=== PATIENT | male | born 1955 | race Caucasian/White ===

== ENCOUNTER 2018-08-10 11:22 | Observation (INO) ==
[2018-08-10] MEDS ORDERED: 0.9 % Sodium Chloride 1,000 ML IVC SCH (12:00)
[2018-08-10 12:23] LABS: Basophils % 0.2 %; Eosinophils % 0.2 %; Hematocrit 33.1 % (37.5-50.1); Immature Granulocytes % 1.6 % (0-4); Lymphocytes # 0.6 K/mcL (0.6-4.6); Lymphocytes % 3.5 %; Mean Corpuscular Volume 75.7 fL (83.0-100.0); Monocytes # 0.9 K/mcL (0.0-1.3); Monocytes % 5.5 %; Neutrophils # 14.8 K/mcL (1.6-8.9); Platelet Count 469 K/mcL (140-400); Red Blood Count 4.37 M/mcL (4.19-5.50); Red Cell Distribution Width 20.3 % (11.5-14.5)
[2018-08-10 12:25] LABS: Hemoglobin 9.6 g/dL (12.9-16.9)
[2018-08-10 12:31] LABS: INR 1.1; Prothrombin Time 12.7 Seconds (9.4-12.1)
[2018-08-10 12:44] LABS: Troponin I < 0.03 ng/mL (< 0.04)
[2018-08-10 12:53] LABS: Alanine Aminotransferase 56 Units/L (7-52); Albumin 3.8 g/dL (3.5-5.7); Albumin/Globulin Ratio 1.1 (1.1-2.2); Alkaline Phosphatase 81 Units/L (34-104); Aspartate Amino Transferase 15 Units/L (13-39); BUN/Creatinine Ratio 31 (6-26); Bilirubin,Total 0.3 mg/dL (0.3-1.0); Blood Urea Nitrogen 27 mg/dL (8-23); Calcium 9.5 mg/dL (8.6-10.3); Carbon Dioxide 26 mEq/L (23-29); Chloride 100 mEq/L (98-107); Globulin 3.5 g/dL (2.4-3.5); Glucose 322 mg/dL (70-105); Osmolality,Calculated 298 (280-300); Potassium 4.4 mEq/L (3.5-5.1); Sodium 135 mEq/L (136-145); Total Protein 7.3 g/dL (6.4-8.9); eGFR For Non-African Americans > 60 (> 60)
--- NOTE | 2018-08-10 12:57 | Emergency Department Note ---
Disposition Clinical Impression: Headache, Pneumonia, Neck pain, Orthostatic hypotension, Dizziness Disposition: Admitted As Inpatient Condition: Fair Forms: ED Satisfaction Letter Time of Disposition: 15:26 General Adult HPI - General Chief complaint: ED Headache Stated complaint: LOW BP/DIzzy Time Seen by Provider: 08/10/18 11:39 Source: patient, family Mode of arrival: ambulatory Limitations: no limitations Nursing Notes Reviewed: Yes Vital Signs Reviewed: Yes - History of Present Illness HPI Narrative: Patient presents emergency room by personal vehicle. Patient presented to request of the primary care provider for evaluation of significant lighthe adedness dizziness and shortness of breath. Patient was seen and evaluated in the hospital setting last week and was discharged home with anemia of unknown etiology. Patient has not had any sedating changes and is been describing dizziness and lightheadedness since leaving the hospital. Currently is denying chest pain, fevers, chills, nausea vomiting or diarrhea. Denies any vision changes. He does have a headache and intermittent lightheadedness noted. Onset (ago): day(s) Location: head Radiation: non-radiation Pain Scale: 8 Quality: aching Consistency: constant Improves with: nothing Worsens with: nothing Associated symptoms: Reports: denies other symptoms Treatments Prior to Arrival: none - Related Data Home Medications Medication Instructions Recorded Confirmed Amlodipine Besylate 10 mg PO DAILY 08/01/18 08/01/18 Aspirin [Adult Aspirin] 81 mg PO DAILY 08/01/18 08/01/18 Atenolol 100 mg PO DAILY 08/01/18 08/01/18 Atorvastatin [Lipitor] 40 mg PO HS 08/01/18 08/01/18 Buspirone HCl [Buspar] 10 mg PO DAILY 08/01/18 08/01/18 Clopidogrel [Plavix] 75 mg PO DAILY 08/01/18 08/01/18 Cyclobenzaprine [Flexeril] 10 mg PO TID PRN 08/01/18 08/01/18 Magnesium 125 mg PO DAILY 08/01/18 08/01/18 Sertraline [Zoloft] 200 mg PO DAILY 08/01/18 08/01/18 hydroCHLOROthiazide 12.5 mg PO DAILY 08/01/18 08/01/18 [Hydrochlorothiazide] metFORMIN [Glucophage] 500 mg PO BID 08/01/18 08/01/18 traZODone [TraZODone] 50 mg PO HS PRN 08/01/18 08/01/18 Sildenafil Citrate [Viagra] 50 - 100 mg PO DAILY PRN 08/02/18 08/02/18 Previous Rx's Medication Instructions Recorded Ferrous Sulfate 325 mg PO DAILY 10 Days #10 tablet 08/07/18 Omeprazole [PriLOSEC] 40 mg PO DAILY 10 Days #10 cap 08/07/18 amLODIPine [Norvasc] 10 mg PO DAILY 5 Days #10 tablet 08/07/18 predniSONE [PredniSONE] 10 mg PO TAPER 14 Days #56 tablet 08/07/18 Allergies Allergy/AdvReac Type Severity Reaction Status Date / Time Iodinated Contrast- Oral and Allergy Angioedema Verified 08/10/18 11:32 IV Dye lisinopril Allergy Angioedema Verified 08/10/18 11:32 Penicillins [PCN] Allergy Hives Verified 08/10/18 11:32 shellfish derived AdvReac Intermediate See Verified 08/10/18 11:32 Comments cefuroxime [From Ceftin] AdvReac Diarrhea Verified 08/10/18 11:32 All systems ED: reviewed and negative except as stated. Review of Systems: As Per HPI Constitutional: Denies: fever, chills, weakness Eyes: Denies: eye pain, eye discharge ENT ED: Reports: throat pain Cardiovascular: Denies: chest pain, palpitations, dyspnea on exertion Respiratory: Denies: cough, dyspnea, wheezes Gastrointestinal: Denies: abdominal pain, nausea, vomiting, diarrhea Genitourinary: Denies: urgency, dysuria, frequency Musculoskeletal: Reports: arthralgia. Denies: back pain, neck pain Integumentary: Denies: rash, abrasion Neurological: Reports: headache. Denies: weakness Endocrine: Reports: fatigue Past Medical History - Past Medical History Attestation: Yes The following information was validated with the patient. Source: patient Medical history: Reports: arthritis, asthma, CVA, diabetes, hypertension Psychiatric history: Reports: no psych history - Social History Smoking Status: Never smoker Smokeless Tobacco Status: No Alcohol use: Reports: rarely Drug use: Reports: none Physical Exam - General Limitations: no limitations General appearance: alert, in no apparent distress - Head Head exam: atraumatic, normocephalic, normal inspection - Eye Eye exam: Present: normal appearance, PERRL, EOMI - ENT ENT exam: normal exam, normal oropharynx, mucous membranes moist - Neck Neck exam: Present: normal inspection, full ROM, trachea midline. Absent: meningismus, lymphadenopathy - Chest Chest inspection: Present: normal inspection, symmetric chest wall rise. Absent: tenderness - Respiratory Respiratory exam: Present: normal lung sounds bilaterally. Absent: respiratory distress, accessory muscle use - Cardiovascular Cardiovascular exam: Present: regular rate, normal rhythm, normal heart sounds - Abdominal Exam Abdominal exam: Present: soft, Non-Tender, normal bowel sounds. Absent: tenderness, distention, guarding, rebound, rigidity, Vo's sign, Rovsing's sign, tenderness at McBurney's Point - Extremities Exam Extremities exam: Present: normal inspection, full ROM, normal capillary refill. Absent: tenderness - Back Exam Back exam: Present: normal inspection, full ROM. Absent: tenderness - Neurological Exam Neurological exam: Present: alert, oriented X3, CN II-XII intact, normal gait - Skin Skin exam: Present: warm, dry, intact, normal color Course Course Narrative: Patient seen and examined the time of arrival. See history of present illness. Patient presents here today with complaint of generalized malaise bodyaches pain in his neck and dizziness. Patient was seen and evaluated in the hospital setting less than a week ago for similar presenting issues. He was found to have hemoglobin of 6.0. He had detailed workup completed that time looking for bleeding sources. He was discharged home with persistent symptoms. Since going home he has not had any real change in the symptoms. He is complaining of hoarse voice and sore throat. This was secondary to an intubation was completed here in the hospital from a medication reaction. Patient had a severe medication reaction to contrast dye and lisinopril. At this point is denying fevers or chills. He does have a headache. Denies any vision changes nausea vomiting or diarrhea. Denies any chest pain or shortness of breath at this time. He is describing orthopnea as well as exertional lightheadedness. He also has documented orthostatic vital signs from his primary care provider's office. They were concerned and sent him into the emergency room for evaluation. Heart rate initially was in the 50s. This could be contributing to his presentation. He is afebrile pulse ox is normal. Physical exam shows a well-appearing male that does appear to be in some moderate distress. Head is atraumatic. Pupils are equal round reactive. Extraocular muscles are intact. Oropharynx is patent. He does have pain with opening and closing of the mouth. His tenderness at the posterior aspect of the bilateral mandibular angle. He has tenderness in the musculature to the anterior neck. He has no midline tenderness to the cervical spine. He has no pain with flexion of the neck for outside of the discomfort he feels around his jaw mouth. Based on the physical exam he has no meningeal symptoms. He does not have reproducible lymphadenopathy. There is no crepitus or discomfort in the neck wall or chest wall. Lungs are clear to auscultation heart is regular. Abdomen is soft nontender nondistended with no guarding no rigidity and no peritoneal symptoms. No signs of pitting edema or swelling in the lower extremities. Patient has no signs of focal neurologic deficit or symptoms at this point. Because of the recent manipulation as well as a descriptive symptoms here today patient will be provided with fluids, offers headache and has CBC chemistry troponin and BNP EKG chest x-ray and CT imaging of his head completed at this time. We will continue to monitor during this treatment course. No visible focal infectious sources are noted at this point. Chest x-ray will be resulted as well. Disposition pending full workup and treatment course. - Reevaluation(s) Reevaluation #1: Patient has negative CT scan of the head. Chest x-ray shows stable cardiomegaly with slight pulmonary congestion. The patient could have symptoms of congestive heart failure. This would be a new diagnosis for him. Patient also is having persistent pain in the neck. IV fluids pain medication will be provided. CT by noncontrasted evaluation the neck and chest will be resulted at this point looking for free air mass effect or any issue secondary to what appears to be a traumatic intubation. Patient is comfortable this plan. Disposition pending treatment course. EKGs were reviewed with the district manager Dr. Manzano. 2 s ubsequent EKGs were collected in that do not meet STEMI criteria based on my review. The troponin is negative and patient has had no chest pain. He does not warrant an emergent intervention or evaluation at this time but will continue to monitor closely and determine disposition. Time: 13:32 Reevaluation #2: Patient is found to have bilateral pneumonia. This is most likely ventilator associated secondary to the emergency intubation in the hospital stay. Went back to discuss the findings with the family. They said that when they were discharged. Told that he could get pneumonia but he was not going to be treated for it at the time of discharge home. Is also had the neck pain since leaving the hospital. The patient does have a previous history of cervical surgery on his spine. He is describing the pain as sharp and acute in his neck when he goes to move. The CT of the soft tissue of the neck does not show any gross abnormality at this time. Pain medications will be given. 2 more liters of fluid ordered and lactic acid has been added on at this time considering that we do have a infectious source to account for the elevated white blood cell count neutrophilia. Patient does not immediately meet sepsis criteria at this point. We will continue to monitor until this is established. Hospitalist has been contacted for medical intervention and admission. Family was informed and they are comfortable with the plan. Patient has been provided Levaquin, aztreonam, vancomycin for ventilator associated pneumonia with a penicillin allergy. The hospitalist Dr. Ramsay reviewed the case and no other recommendations or concerns. Lactic acid is still pending at this point. Patient has started been appropriately resuscitated with his pain medication fluids nausea medication and antibiotics. Patient will be observed in emergency room until admission process is completed Time: 15:18 Vital Signs Temperature 97.4 F L 08/10/18 11:31 Pulse Rate 54 08/10/18 11:31 Respiratory Rate 18 08/10/18 11:31 Blood Pressure 118/68 08/10/18 11:31 O2 Sat by Pulse Oximetry 98 08/10/18 11:31 Temperature 97.4 F L 08/10/18 12:07 Pulse Rate 55 08/10/18 13:29 Respiratory Rate 16 08/10/18 13:29 Blood Pressure 144/77 08/10/18 13:29 O2 Sat by Pulse Oximetry 97 08/10/18 13:29 Oxygen Delivery Oxygen Delivery Room Air Medical Decision Making - MDM Narrative Medical decision making narrative: Dizziness, neck pain, headache, generalized malaise - Medical Records Medical records reviewed: Yes I reviewed the patient's medical records. - Lab Data Lab results reviewed: Yes I reviewed the patient's lab results. Result diagrams: 08/10/18 11:48 08/10/18 12:07 Lab Results 08/10/18 08/10/18 08/10/18 Range/Units 11:48 11:48 11:48 WBC 16.7 H (4.3-11.1) K/mcL RBC 4.37 (4.19-5.50) M/mcL Hgb 9.6 L D (12.9-16.9) g/dL Hct 33.1 L (37.5-50.1) % MCV 75.7 L (83.0-100.0) fL MCH 22.0 L (28.0-33.3) pg MCHC 29.0 L (31.6-35.5) g/dL RDW 20.3 H (11.5-14.5) % Plt Count 469 H (140-400) K/mcL MPV 10.0 (9.4-12.4) fL Immature Gran % 1.6 (0-4) % Seg Neutrophils % 89.0 % Lymphocytes % 3.5 % Monocytes % 5.5 % Eosinophils % 0.2 % Basophils % 0.2 % Neutrophils # 14.8 H (1.6-8.9) K/mcL Lymphocytes # 0.6 (0.6-4.6) K/mcL Monocytes # 0.9 (0.0-1.3) K/mcL Eosinophils # 0.0 (0.0-0.6) K/mcL Basophils # 0.0 (0.0-0.2) K/mcL PT 12.7 H (9.4-12.1) Seconds INR 1.1 Sodium (136-145) mEq/L Potassium (3.5-5.1) mEq/L Chloride (98-107) mEq/L Carbon Dioxide (23-29) mEq/L BUN (8-23) mg/dL Creatinine (0.70-1.30) mg/dL Est GFR ( Amer) (> 60) Est GFR (Non-Af Amer) (> 60) BUN/Creatinine Ratio (6-26) Glucose (70-105) mg/dL Calculated Osmolality (280-300) Calcium (8.6-10.3) mg/dL Total Bilirubin (0.3-1.0) mg/dL AST (13-39) Units/L ALT (7-52) Units/L Alkaline Phosphatase (34-104) Units/L Troponin I (< 0.04) ng/mL B-Natriuretic Peptide 142 H (Less than 100) pg/mL Serum Total Protein (6.4-8.9) g/dL Albumin (3.5-5.7) g/dL Globulin (2.4-3.5) g/dL Albumin/Globulin Ratio (1.1-2.2) Urine Color (Yellow) Urine Clarity (Clear) Urine pH (5.0-8.0) pH Units Ur Specific [place] (1.010-1.025) Urine Protein (Neg-Trace) mg/dL Urine Glucose (UA) (Normal) mg/dL Urine Ketones (Negative) mg/dL Urine Blood (Negative) Urine Nitrite (Negative) Urine Bilirubin (Negative) Urine Urobilinogen (Normal) mg/dL Ur Leukocyte Esterase (Negative) Urine Microscopic RBC (0-3) per hpf Urine Microscopic WBC (0-3) per hpf Ur Squamous Epith Cells (None-Few) per lpf Urine Bacteria (None-Few) per hpf Hyaline Casts (None-Few) per lpf Ur Culture Indicated? (NO) Blood Type Antibody Screen 08/10/18 08/10/18 08/10/18 Range/Units 12:07 12:42 14:30 WBC (4.3-11.1) K/mcL RBC (4.19-5.50) M/mcL Hgb (12.9-16.9) g/dL Hct (37.5-50.1) % MCV (83.0-100.0) fL MCH (28.0-33.3) pg MCHC (31.6-35.5) g/dL RDW (11.5-14.5) % Plt Count (140-400) K/mcL MPV (9.4-12.4) fL Immature Gran % (0-4) % Seg Neutrophils % % Lymphocytes % % Monocytes % % Eosinophils % % Basophils % % Neutrophils # (1.6-8.9) K/mcL Lymphocytes # (0.6-4.6) K/mcL Monocytes # (0.0-1.3) K/mcL Eosinophils # (0.0-0.6) K/mcL Basophils # (0.0-0.2) K/mcL PT (9.4-12.1) Seconds INR Sodium 135 L (136-145) mEq/L Potassium 4.4 (3.5-5.1) mEq/L Chloride 100 (98-107) mEq/L Carbon Dioxide 26 (23-29) mEq/L BUN 27 H (8-23) mg/dL Creatinine 0.88 (0.70-1.30) mg/dL Est GFR ( Amer) > 60 (> 60) Est GFR (Non-Af Amer) > 60 (> 60) BUN/Creatinine Ratio 31 H (6-26) Glucose 322 H (70-105) mg/dL Calculated Osmolality 298 (280-300) Calcium 9.5 (8.6-10.3) mg/dL Total Bilirubin 0.3 (0.3-1.0) mg/dL AST 15 (13-39) Units/L ALT 56 H (7-52) Units/L Alkaline Phosphatase 81 (34-104) Units/L Troponin I < 0.03 (< 0.04) ng/mL B-Natriuretic Peptide (Less than 100) pg/mL Serum Total Protein 7.3 (6.4-8.9) g/dL Albumin 3.8 (3.5-5.7) g/dL Globulin 3.5 (2.4-3.5) g/dL Albumin/Globulin Ratio 1.1 (1.1-2.2) Urine Color Yellow (Yellow) Urine Clarity Clear (Clear) Urine pH 6.0 (5.0-8.0) pH Units Ur Specific [place] 1.029 H (1.010-1.025) Urine Protein Trace (Neg-Trace) mg/dL Urine Glucose (UA) >=1000 H (Normal) mg/dL Urine Ketones Negative (Negative) mg/dL Urine Blood Negative (Negative) Urine Nitrite Negative (Negative) Urine Bilirubin Negative (Negative) Urine Urobilinogen Normal (Normal) mg/dL Ur Leukocyte Esterase Negative (Negative) Urine Microscopic RBC 3-5 H (0-3) per hpf Urine Microscopic WBC 0-3 (0-3) per hpf Ur Squamous Epith Cells Moderate H (None-Few) per lpf Urine Bacteria Moderate H (None-Few) per hpf Hyaline Casts None Seen (None-Few) per lpf Ur Culture Indicated? NO (NO) Blood Type A POSITIVE Antibody Screen NEGATIVE - Radiology Data Radiology results reviewed: Yes I reviewed the patient's radiology results. CT imaging of the chest confirms bilateral pneumonia. Cervical spine evaluation soft tissue of the neck does not show any acute etiology. CT imaging of the head is unremarkable. - EKG Data EKG #1 EKG attestation: Yes I reviewed and interpreted this EKG. EKG results narrative: EKG #1 1149, sinus rhythm. Heart rate of 52. [place] interval 169. QRS duration 96. QTC of 440. [place] appears to be normal. Wandering baseline difficult to differentiate ST segment elevation. There appears to be subjective repolarization to 3 and aVF with no reciprocal changes. EKG from 08/02/18 does show changes at this time with amplitude morphology appears to be similar. No acute signs of myocardial infarction. No acute signs of WPW or [place]. EKG #2 1246, heart rate 55. [place] interval 170. QRS duration 95. QTC of 443. No acute changes. Intervals are all the same. No acute signs of progressive ST segment elevation or abnormality. No acute signs of myocardial infarction. Troponin is negative.
[2018-08-10] MEDS ORDERED: *HR* FentaNYL (PF) 100 MCG/2 ML VIAL IVP ONE (13:03)
[2018-08-10] MEDS ORDERED: Ondansetron 4 MG/2 ML VIAL IVP ONE (13:04)
[2018-08-10 14:41] LABS: Bilirubin,Urine Negative (Negative); Blood,Urine Negative (Negative); Clarity,Urine Clear (Clear); Color,Urine Yellow (Yellow); Glucose,Urine (UA) >=1000 mg/dL (Normal); Ketones,Urine Negative (Negative); Leukocyte Esterase,Urine Negative (Negative); Nitrite,Urine Negative (Negative); Protein,Urine Trace mg/dL (Neg-Trace); Specific Gravity,Urine 1.029 (1.010-1.025); Urobilinogen,Urine Normal (Normal)
[2018-08-10 14:43] LABS: Bacteria,Urine Moderate per hpf (None-Few); Hyaline Casts,Urine None Seen per lpf (None-Few); Squamous Epithelial Cell,Urine Moderate per lpf (None-Few); WBC,Urine 0-3 per hpf (0-3)
[2018-08-10] MEDS ORDERED: 0.9 % Sodium Chloride 1,000 ML IVC ONE ×2 (14:55→15:08)
[2018-08-10] MEDS ORDERED: *HR* HYDROmorphone (PF) 1 MG/ML SYRINGE IVP ONE (15:11)
[2018-08-10] MEDS ORDERED: Levofloxacin 750 MG/150 ML 750 MG/150 ML BAG IVPB ONE (15:15)
[2018-08-10] MEDS ORDERED: Aztreonam 2,000 MG in Water for inj. (sterile) 20 ML 20 ML IVP ONE (15:25)
[2018-08-10] MEDS ORDERED: Vancomycin (wt based) 1,000 MG VIAL IVPB SCH (16:00)
--- NOTE | 2018-08-10 16:33 | Internal Med History&Physical ---
<Zac Hamm - Last Filed: 08/10/18 16:57> Date of Encounter: 08/10/18 Time of Encounter: 16:23 Internal Medicine - H&P: HPI Chief complaint: pre-syncope Admitted From: Emergency Dept Plans for Post Hospital Care: Home History of present illness: Mr. Velasco is a 63 year old male with past medical history of CVA (on plavix), diabetes, hypertension, hyperlipidemia, cervical spondylosis. Patient was rec ently hospitalized from 08/01-08/07. During this time, he was transfused for anemia, and plan was to get EGD/colonoscopy for anemia workup. However, while taking his bowel prep, he develop severe anaphylaxis requiring intubation and was transferred to the ICU. He eventually did receive EGD and colonoscopy that were unremarkable. Plan was for outpatient Endoscopy. There was also concern for CHF vs. Transfusion related lung injury. Today, he was at the doctors office for Hospital follow-up. He was asked to lie down, and then upon sitting up, his SBP dropped significantly (about 25mmHg). Patient also has been short of breath and generally not feeling well since his last hospitalization. Patient states that he does have history of vertical. However over the last couple weeks he has been experiencing significant dizziness and pre-syncopal episodes. When he gets up from a seated position he develop significant dizziness, lightheadedness. He denies any episodes of syncope. He denies any sensation of palpitations. He denies nausea, vomiting, diarrhea, fever, chills. He does report intermittent shortness of breath. He denies hematuria, hematochezia, melena. Past Med Surg Social Fam HX - Past Medical History Medical history: arthritis, asthma, CVA, diabetes, hypertension Psychiatric history: no psych history - Past Surgical History Additional surgical history: neck/spinal fusion, toe implants, knee scope - Social History Smoking Status: Never smoker Smokeless Tobacco Status: No Alcohol use: rarely Drug use: none Internal Medicine - H&P: Meds Amlodipine Besylate 10 mg PO DAILY 08/01/18 [History] Aspirin [Adult Aspirin] 81 mg PO DAILY 08/01/18 [History] Atenolol 100 mg PO DAILY 08/01/18 [History] Atorvastatin [Lipitor] 40 mg PO HS 08/01/18 [History] Buspirone HCl [Buspar] 10 mg PO DAILY 08/01/18 [History] Clopidogrel [Plavix] 75 mg PO DAILY 08/01/18 [History] Cyclobenzaprine [Flexeril] 10 mg PO TID PRN 08/01/18 [History] Magnesium 125 mg PO DAILY 08/01/18 [History] Sertraline [Zoloft] 200 mg PO DAILY 08/01/18 [History] hydroCHLOROthiazide [Hydrochlorothiazide] 12.5 mg PO DAILY 08/01/18 [History] metFORMIN [Glucophage] 500 mg PO BID 08/01/18 [History] traZODone [TraZODone] 50 mg PO HS PRN 08/01/18 [History] Sildenafil Citrate [Viagra] 50 - 100 mg PO DAILY PRN 08/02/18 [History] Ferrous Sulfate 325 mg PO DAILY 10 Days #10 tablet 08/07/18 [Rx] Omeprazole [PriLOSEC] 40 mg PO DAILY 10 Days #10 cap 08/07/18 [Rx] amLODIPine [Norvasc] 10 mg PO DAILY 5 Days #10 tablet 08/07/18 [Rx] predniSONE [PredniSONE] 10 mg PO TAPER 14 Days #56 tablet 08/07/18 [Rx] Allergy/AdvReac Type Severity Reaction Status Date / Time Iodinated Contrast- Oral and Allergy Angioedema Verified 08/10/18 11:32 IV Dye lisinopril Allergy Angioedema Verified 08/10/18 11:32 Penicillins [PCN] Allergy Hives Verified 08/10/18 11:32 shellfish derived AdvReac Intermediate See Verified 08/10/18 11:32 Comments cefuroxime [From Ceftin] AdvReac Diarrhea Verified 08/10/18 11:32 All Systems PM: A 10-system review of systems was performed and is negative for pertinent findings except as documented above in the HPI. - Constitutional Constitutional: as per HPI - EENT Eyes: as per HPI Ears: as per HPI Nose, mouth and throat: as per HPI - Breasts Breasts: as per HPI - Cardiovascular Cardiovascular ROS IM: as per HPI - Respiratory Respiratory: as per HPI - Gastrointestinal Gastrointestinal: as per HPI - Genitourinary Genitourinary ROS male: as per HPI - Musculoskeletal Musculoskeletal ROS IM: as per HPI - Integumentary Integumentary IM: as per HPI - Neurological Neurological ROS: as per HPI - Psychiatric Psychiatric: as per HPI - Endocrine Endocrine IM: as per HPI - Hematologic/Lymphatic Hematologic/Lymphatic: as per HPI - Allergic/Immunologic Allergic/Immunologic: as per HPI - Constitutional Vitals: Temp Pulse Resp BP Pulse Ox 97.4 F L 60 16 140/85 97 08/10/18 12:07 08/10/18 15:28 08/10/18 15:28 08/10/18 15:28 08/10/18 15:28 Exam: General: alert and oriented x3, pleasant, no acute distress. CV: regular rate and rhythm, no murmurs, rubs, gallops. No edema noted. Respiratory: decreased breath sounds noted in right lower lobe. no wheezing present. Abdomen: soft, nondistended, nontender, bowel sounds present. Extremities: no cyanosis or edema noted. Internal Med - H&P Results - Labs CBC & Chem 7: 08/10/18 11:48 08/10/18 12:07 Labs: Short CBC 08/10/18 Range/Units 11:48 WBC 16.7 H (4.3-11.1) K/mcL Hgb 9.6 L D (12.9-16.9) g/dL Hct 33.1 L (37.5-50.1) % Plt Count 469 H (140-400) K/mcL Neutrophils # 14.8 H (1.6-8.9) K/mcL BMP 08/10/18 12:07 Sodium 135 L Potassium 4.4 Chloride 100 Carbon Dioxide 26 BUN 27 H Creatinine 0.88 Glucose 322 H Calcium 9.5 Cardiac Enzymes 08/10/18 Range/Units 12:07 Troponin I < 0.03 (< 0.04) ng/mL Liver Function 08/10/18 Range/Units 12:07 Total Bilirubin 0.3 (0.3-1.0) mg/dL AST 15 (13-39) Units/L ALT 56 H (7-52) Units/L Alkaline Phosphatase 81 (34-104) Units/L Albumin 3.8 (3.5-5.7) g/dL Urine 08/10/18 Range/Units 14:30 Urine Color Yellow (Yellow) Urine Clarity Clear (Clear) Urine pH 6.0 (5.0-8.0) pH Units Ur Specific [place] 1.029 H (1.010-1.025) Urine Protein Trace (Neg-Trace) mg/dL Urine Glucose (UA) >=1000 H (Normal) mg/dL - Impressions ITS Impressions Head CT 08/10/18 11:48 IMPRESSION: No acute intracranial abnormality. D/ / Kevan Orozco MD / Kevan Orozco MD Interpreting Provider: Kevan Orozco MD Chest X-Ray 08/10/18 11:58 IMPRESSION: Cardiomegaly with vascular congestion, and minimal left basilar atelectasis. D/ / Art Goldstein MD / Art Goldstein MD Interpreting Provider: Art Goldstein MD Chest CT 08/10/18 13:05 IMPRESSION: Interval resolution of previously noted patchy areas of mild ground-glass opacity/consolidation to the lungs bilaterally as well as bilateral pleural effusions from prior CTA study 08/01/2018. Mild central bronchial wall thickening can be seen with bronchitis. Atherosclerosis to include coronary artery disease. D/ / 08/10/2018 14:23:46 Geovanny Macias MD / nighat Interpreting Provider: Geovanny Macias MD Soft Tissue Neck CT 08/10/18 13:05 IMPRESSION: No acute abnormality of the soft tissue structures of the neck. 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 D/ / 08/10/2018 14:30:26 Herberth Perez / nighat Interpreting Provider: Herberth Perez - Assessment and plan (1) Dyspnea Current Visit: No Status: Acute Assessment and plan: Plan as above Qualifiers: Dyspnea type: shortness of breath Qualified Code(s): R06.02 - Shortness of breath; R06.00 - Dyspnea, unspecified; R06.01 - Orthopnea (2) Pre-syncope Current Visit: Yes Status: Acute Assessment and plan: Recent multiple episodes of presyncope. Of note, patient did have bilateral carotid duplex in 2016 that was normal. Recent echocardiogram from 08/02/18 showed LVEF 60-625%, normal LV chamber size and function, mild concentric left ventricular hypertrophy, normal right ventr icular structure and function, mild pulmonary hypertension, no significant valvular dysfunction. Head CT unremarkable Plan: will repeat carotid Doppler check orthostatic vitals Patient received 2 fluid boluses and emergency department. Will avoid giving further fluids in setting of recent concern for transfusion related lung injury. (3) History of CVA (cerebrovascular accident) Current Visit: No Status: Acute Assessment and plan: continue home meds once verified (4) Diabetes mellitus Current Visit: No Status: Chronic Assessment and plan: hold metformin medium dose SSI, ADA diet, ACHS accuchecks. Qualifiers: Diabetes mellitus type: type 2 Diabetes mellitus manager long term care insulin use: without fpc use Diabetes mellitus complication status: without complication Qualified Code(s): E11.9 - Type 2 diabetes mellitus without complications (5) DVT prophylaxis Current Visit: Yes Status: Resolved Assessment and plan: heparin SQ (6) Acute bronchitis Current Visit: Yes Status: Acute Assessment and plan: 63-year-old male who was recently admitted comes in with complaints of shortness of breath, hoarseness. Chest x-ray showed cardio medically with vascular congestion and mild left basilar atelectasis. Chest CT showed interval resolution of previously noted patchy areas of ground glass opacities, bilateral pleural effusions, mild central bronchial wall thickening etiology likely multifactorial from recent intubation, transfusion related lung injury. No obvious new opacities present. However, we will treat for possible developing superimposed pneumonia. No concern for sepsis at this time. WBC was elevated, however patient was recently discharged on prednisone. Patient received vancomycin, aztreonam, levaquin in ED. Plan: Levaquin day 1 blood cultures x2 pending rapid flu pending prn DuoNebs Qualifiers: Bronchitis organism: unspecified organism Qualified Code(s): J20.9 - Acute bronchitis, unspecified - Time Spent With Patient Total time spent is greater than 50% in coordination of care (as documented) at patient's floor/unit and/or counseling patient: <Korin Ramsay - Last Filed: 08/10/18 19:28> Date of Encounter: 08/10/18 Time of Encounter: 19:00 Internal Medicine - H&P: HPI History of present illness: Mr. Velasco is a 63 year old male All Systems PM: A 10-system review of systems was performed and is negative for pertinent findings except as documented above in the HPI. - Constitutional Vitals: Temp Pulse Resp BP Pulse Ox 97.8 F 56 18 173/116 96 08/10/18 17:54 08/10/18 17:54 08/10/18 17:54 08/10/18 17:54 08/10/18 17:54 Internal Med - H&P Results - Labs CBC & Chem 7: 08/10/18 11:48 08/10/18 12:07 Labs: Short CBC 08/10/18 Range/Units 11:48 WBC 16.7 H (4.3-11.1) K/mcL Hgb 9.6 L D (12.9-16.9) g/dL Hct 33.1 L (37.5-50.1) % Plt Count 469 H (140-400) K/mcL Neutrophils # 14.8 H (1.6-8.9) K/mcL BMP 08/10/18 12:07 Sodium 135 L Potassium 4.4 Chloride 100 Carbon Dioxide 26 BUN 27 H Creatinine 0.88 Glucose 322 H Calcium 9.5 Cardiac Enzymes 08/10/18 Range/Units 12:07 Troponin I < 0.03 (< 0.04) ng/mL Liver Function 08/10/18 Range/Units 12:07 Total Bilirubin 0.3 (0.3-1.0) mg/dL AST 15 (13-39) Units/L ALT 56 H (7-52) Units/L Alkaline Phosphatase 81 (34-104) Units/L Albumin 3.8 (3.5-5.7) g/dL Urine 08/10/18 Range/Units 14:30 Urine Color Yellow (Yellow) Urine Clarity Clear (Clear) Urine pH 6.0 (5.0-8.0) pH Units Ur Specific [place] 1.029 H (1.010-1.025) Urine Protein Trace (Neg-Trace) mg/dL Urine Glucose (UA) >=1000 H (Normal) mg/dL - Impressions ITS Impressions Head CT 08/10/18 11:48 IMPRESSION: No acute intracranial abnormality. D/ / Kevan Orozco MD / Kevan Orozco MD Interpreting Provider: Kevan Orozco MD Chest X-Ray 08/10/18 11:58 IMPRESSION: Cardiomegaly with vascular congestion, and minimal left basilar atelectasis. D/ / Art Goldstein MD / Art Goldstein MD Interpreting Provider: Art Goldstein MD Chest CT 08/10/18 13:05 IMPRESSION: Interval resolution of previously noted patchy areas of mild ground-glass opacity/consolidation to the lungs bilaterally as well as bilateral pleural effusions from prior CTA study 08/01/2018. Mild central bronchial wall thickening can be seen with bronchitis. Atherosclerosis to include coronary artery disease. D/ / 08/10/2018 14:23:46 Geovanny Macias MD / [facility]hat Interpreting Provider: Geovanny Macias MD Soft Tissue Neck CT 08/10/18 13:05 IMPRESSION: No acute abnormality of the soft tissue structures of the neck. 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 D/ / 08/10/2018 14:30:26 Herberth Perez / nighat Interpreting Provider: Herberth Perez - Assessment and plan (1) Dyspnea Current Visit: No Status: Acute Qualifiers: Dyspnea type: shortness of breath Qualified Code(s): R06.02 - Shortness of breath; R06.00 - Dyspnea, unspecified; R06.01 - Orthopnea (2) History of CVA (cerebrovascular accident) Current Visit: No Status: Acute (3) Diabetes mellitus Current Visit: No Status: Chronic Qualifiers: Diabetes mellitus type: type 2 Diabetes mellitus fpc insulin use: without fpc use Diabetes mellitus complication status: without complication Qualified Code(s): E11.9 - Type 2 diabetes mellitus without complications (4) DVT prophylaxis Current Visit: Yes Status: Resolved (5) Pre-syncope Current Visit: Yes Status: Acute (6) Acute bronchitis Current Visit: Yes Status: Acute Qualifiers: Bronchitis organism: unspecified organism Qualified Code(s): J20.9 - Acute bronchitis, unspecified - Time Spent With Patient Total time spent is greater than 50% in coordination of care (as documented) at patient's floor/unit and/or counseling patient: - Attending Attestation I saw evaluated and examined this patient and my medical decision-making was reviewed with the Resident Physician, Zac Hamm. I agree with the documented findings, disposition and treatment plan as described except to any changes set forth below. We independently had [id number] contact with the patient. Patient with a history of diabetes, hypertension, cervical spondylosis and prior CVA who presented to the ER with complaints of shortness of breath and generalized weakness that has not improved since his discharge from the hospital. Patient has also continued to have hoarseness of voice. Patient was hospitalized here recently initially for a pericardial effusion and an developed pulmonary edema and angioedema during his stay here after blood transfusion and while he was said to undergo upper GI endoscopy. Patient was then treated for transfusion related lung injury and was eventually discharged home on prednisone. He did not receive any antibiotics here. During his visit to the clinic today, patient was found to be coming hypotensive and he stood up from a lying down position. He also reports severe pain in his neck on both sides and cervical spasm inhibiting his ability to move his head from [id number]. He is able to sit up from a lying down position but with severe pain. General: Patient is alert, no acute distress, oriented x 3 Head: atraumatic, normocephalic, ENT: Mucous membranes moist, hoarse voice Eye: normal appearance, PERRL, no scleral icterus, no conjunctival injection Neck: Bilateral neck spasm. Neck is rigid due to spasm. Patient is however able to lift his head off the bed. Chest: normal inspection, symmetric chest rise Respiratory: Good respiratory effort. Normal breath sounds. No wheezing or crackles. Cardiovascular: Regular rate and rhythm. s1 and s2 normal No clicks, rubs, gallops, or murmurs. No pedal edema Abdomen: Abdomen is soft, nontender. Bowel sounds are present Musculoskeletal: Spontaneously moving all extremities Skin: warm, dry, intact. Neuro: Alert oriented x 3 normal cranial nerves, no focal deficits Psych: Patient's affect is normal CT scan of the chest shows resolving patchy areas of groundglass opacities and bilateral pleural effusions. Patient does have central bronchial wall thickening concerning for bronchitis. Acute bronchitis: CT scan of the chest shows acute bronchitis. Patient does not describe any sputum production. He does have cough. No hemoptysis. No fevers or chills. We will treat him with empiric antibiotics, given its. Cervical spasm and pain: Likely due to manipulation during endotracheal intubation during hospital stay last time. We will obtain CT spine. In the meantime, treat pain with muscle relaxants. Consider spine surgery consult in morning. Presyncope and orthostasis: Check orthostatic blood pressure. Check carotid Dopplers. Diabetes mellitus type 2: Place patient on sliding scale insulin. Monitor blood sugars. DVT prophylaxis with subcutaneous heparin
[2018-08-10] MEDS ORDERED: Naloxone 0.4 MG/ML INJ IVP PRN (16:39)
[2018-08-10] MEDS ORDERED: Dextrose Gel 15 GM/37.5 ML TUBE PO PRN ×2 (16:46)
[2018-08-10] MEDS ORDERED: D5% in Water 1,000 ML IVC PRN (16:46)
[2018-08-10] MEDS ORDERED: *HR* Dextrose 50 % in Water (Syg) 50 ML SYRINGE IVP PRN (16:46)
[2018-08-10] MEDS ORDERED: Ipratropium/Albuterol Neb 3 ML IH PRN (17:05)
[2018-08-10] MEDS: *HR* Heparin 5,000 UNIT/ML VIAL SQ SCH (18:24)
[2018-08-10] MEDS: Acetaminophen 325 MG TABLET PO PRN (20:02)
[2018-08-10] MEDS: Insulin LISPRO 300 UNITS/3 ML VIAL SQ SCH (21:31)
[2018-08-10] MEDS ORDERED: traMADol 50 MG TABLET PO PRN (22:11)
[2018-08-11] MEDS: Acetaminophen 325 MG TABLET PO PRN ×2 (01:31→08:53)
[2018-08-11] MEDS: OXYCODONE Oral CONC 10 MG/0.5 ML ORAL.SYG SL PRN ×5 (01:45→19:57)
[2018-08-11 05:04] LABS: Enterococcus by PCR Not Detected (Not Detect)
[2018-08-11 05:05] LABS: Acinetobacter baumannii by PCR Not Detected (Not Detect); Candida albicans by PCR Not Detected (Not Detect); Candida glabrata by PCR Not Detected (Not Detect); Candida krusei by PCR Not Detected (Not Detect); Candida parapsilosis by PCR Not Detected (Not Detect); Candida tropicalis by PCR Not Detected (Not Detect); Enterobacter cloacae Cmplx PCR Not Detected (Not Detect); Enterobacteriaceae by PCR Not Detected (Not Detect); Escherichia coli by PCR Not Detected (Not Detect); Klebsiella oxytoca by PCR Not Detected (Not Detect); Klebsiella pneumoniae by PCR Not Detected (Not Detect); Proteus by PCR Not Detected (Not Detect); Pseudomonas aeruginosa by PCR Not Detected (Not Detect); Serratia marcescens by PCR Not Detected (Not Detect); Staphylococcus aureus by PCR Not Detected (Not Detect); Staphylococcus by PCR Not Detected (Not Detect); Streptococcus agalactiae(B)PCR Not Detected (Not Detect); Streptococcus by PCR DETECTED (Not Detect); Streptococcus pneumoniae PCR Not Detected (Not Detect); Streptococcus pyogenes (A) PCR Not Detected (Not Detect)
[2018-08-11 05:11] LABS: Basophils % 0.1 %; Eosinophils % 0.2 %; Hematocrit 25.9 % (37.5-50.1); Immature Granulocytes % 1.1 % (0-4); Lymphocytes % 6.3 %; Mean Corpuscular HGB Conc 30.5 g/dL (31.6-35.5); Mean Corpuscular Hemoglobin 22.4 pg (28.0-33.3); Mean Corpuscular Volume 73.4 fL (83.0-100.0); Mean Platelet Volume 10.4 fL (9.4-12.4); Monocytes # 1.8 K/mcL (0.0-1.3); Monocytes % 11.6 %; Neutrophils # 12.2 K/mcL (1.6-8.9); Platelet Count 359 K/mcL (140-400); Red Blood Count 3.53 M/mcL (4.19-5.50); Red Cell Distribution Width 21.1 % (11.5-14.5); Segmented Neutrophils % 80.7 %
[2018-08-11 05:13] LABS: Hemoglobin 7.9 g/dL (12.9-16.9)
[2018-08-11 05:30] LABS: BUN/Creatinine Ratio 32 (6-26); Blood Urea Nitrogen 20 mg/dL (8-23); Calcium 8.7 mg/dL (8.6-10.3); Carbon Dioxide 25 mEq/L (23-29); Chloride 99 mEq/L (98-107); Glucose 175 mg/dL (70-105); Magnesium 1.6 mg/dL (1.6-2.6); Osmolality,Calculated 277 (280-300); Phosphorous 2.4 mg/dL (2.7-4.5); Potassium 3.6 mEq/L (3.5-5.1); Sodium 130 mEq/L (136-145); eGFR For Non-African Americans > 60 (> 60)
[2018-08-11] MEDS: *HR* Heparin 5,000 UNIT/ML VIAL SQ SCH ×2 (05:38→17:46)
[2018-08-11] MEDS: Levofloxacin 500 MG/100 ML 500 MG/100 ML BAG IVPB SCH (08:56)
[2018-08-11] MEDS: Insulin LISPRO 300 UNITS/3 ML VIAL SQ SCH ×4 (09:08→19:56)
[2018-08-11] MEDS ORDERED: traZODone 50 MG TABLET PO PRN (14:30)
--- NOTE | 2018-08-11 14:33 | Internal Med Progress Note ---
Hospitalist Progress Note - Encounter Date of Encounter: 08/11/18 Time of Encounter: 08:35 - Subjective Interval History: Patient was seen and examined at bedside, at bedside, all questions answered. He reports that he developed neck pain while hospitalized on his last admission which was 1 week ago however he did not want to complain as he wanted to get discharged. He reports that his neck pain has worsened since discharge and 08/07. He reports that the range of motion has mildly improved. He denies back pain with neck flexion, has no fever, reports occasional cough with nonproductive sputum. Denies fever, chills, chest pain, shortness of breath, nausea vomiting or diarrhea - Exam Vitals: Temp Pulse Resp BP Pulse Ox 97.5 F L 66 20 153/84 97 08/11/18 08:51 08/11/18 08:51 08/11/18 08:51 08/11/18 08:51 08/11/18 08:51 Exam: General: Patient is alert, oriented, no acute distress, obese Head: atraumatic, normocephalic, Eye: normal appearance, PERRL, no scleral icterus, no conjunctival injection, no photophobia ENT: mucous membranes moist, normal external ear exam Neck: normal inspection, trachea midline, large circumference, range of motion significantly reduced in all directions. Chest: normal inspection, symmetric chest rise Respiratory: Distant breath sounds secondary to body habitus, no wheezing, occasional crackles Cardiovascular: Distant heart sounds secondary to body habitus, Regular rate and rhythm. s1 and s2 No clicks, rubs, gallops, or murmors. Abdomen: Bowel sounds present normoactive x-4 quadrants. Abdomen is soft, nondistended. no Epigastric tenderness. No guarding or rebound. No organomegaly noted, obese musculoskeletal: Spontaneously moving all extremities, strength is 5 out of 5 in all extremities. no edema, no calf tenderness Skin: warm, dry, intact. Neuro: Alert and oriented x4. Sensation light touch intact. Cranial nerves 2- 12 is intact. Pronator sign negative, strength is 5 out of 5 in all extremities, negative Kerning and brudzinke sign, Psych: Patient's affect is normal - Assessment and Plan (1) Cervical spondylosis Current Visit: Yes Status: Acute Assessment and Plan: Neck pain is most likely secondary to cervical spondylosis doubt meningitis as he has no meningeal signs, no fever and is alert and oriented 3 Multi-level cervical spondylosis is centered at C4-C5 Postsurgical changes of C5-C7 Spine was consulted will follow Dr. Iyer's recommendations Flexeril Lidocaine patch (2) Pre-syncope Current Visit: Yes Status: Acute Assessment and Plan: Recent multiple episodes of presyncope. Recent echocardiogram from 08/02/18 showed LVEF 60-625%, normal LV chamber size and function, mild concentric left ventricular hypertrophy, normal right ventricular structure and function, mild pulmonary hypertension, no significant valvular dysfunction. Head CT unremarkable Carotid ultrasound unremarkable Continue telemetry monitoring Likely secondary to hypotension that was noticed in the emergency department Physical therapy We will speak to patient about obtaining MRI of the head Orthostatics pending (3) Acute bronchitis Current Visit: Yes Status: Acute Assessment and Plan: Chest x-ray showed cardio medically with vascular congestion and mild left basilar atelectasis. Chest CT showed interval resolution of previously noted patchy areas of ground glass opacities, bilateral pleural effusions, mild central bronchial wall thickening Influenza negative Urine antigens pending We will continue Levaquin Duo nebs when necessary Continue prednisone and taper off (4) Leukocytosis Current Visit: Yes Status: Acute Assessment and Plan: Mr. Luther leukocytosis most likely secondary to steroids and acute bronchitis One of 2 blood culture from admission is going Gram-positive cocci most likely contaminant 2 more blood cultures sent on 08/11 Edmonson criteria low probability Continue to monitor CBC (5) Microcytic anemia Current Visit: Yes Status: Acute Assessment and Plan: Was recently admitted early July 2018 Endoscopy and colonoscopy performed which showed hemorrhoids however source was not found Was recommended to follow for capsule enteroscopy as outpatient We will continue to monitor hemoglobin if it trends down we will consider consulting GI Continue iron supplementation (6) History of CVA (cerebrovascular accident) Current Visit: No Status: Acute Assessment and Plan: Continue aspirin and Plavix Continue Lipitor BP control with home BP medications will adjust as per BP (7) Diabetes mellitus Current Visit: No Status: Chronic Assessment and Plan: hold metformin medium dose SSI, ADA diet, ACHS accuchecks. (8) Hypophosphatemia Current Visit: Yes Status: Acute Assessment and Plan: Replaced (9) DVT prophylaxis Current Visit: Yes Status: Resolved Assessment and Plan: heparin SQ - Time Spent with Patient Total time spent is greater than 50% in coordination of care (as documented) at patient's floor/unit and/or counseling patient: Internal Medicine: Result - Labs CBC & Chem 7: 08/11/18 04:26 08/11/18 04:26 Labs: Short CBC 08/11/18 Range/Units 04:26 WBC 15.1 H (4.3-11.1) K/mcL Hgb 7.9 L D (12.9-16.9) g/dL Hct 25.9 L (37.5-50.1) % Plt Count 359 (140-400) K/mcL Neutrophils # 12.2 H (1.6-8.9) K/mcL BMP 08/11/18 04:26 Sodium 130 L Potassium 3.6 Chloride 99 Carbon Dioxide 25 BUN 20 Creatinine 0.63 L Glucose 175 H Calcium 8.7 Urine 08/10/18 Range/Units 14:30 Urine Color Yellow (Yellow) Urine Clarity Clear (Clear) Urine pH 6.0 (5.0-8.0) pH Units Ur Specific [place] 1.029 H (1.010-1.025) Urine Protein Trace (Neg-Trace) mg/dL Urine Glucose (UA) >=1000 H (Normal) mg/dL - ABG Interpretation ABG results: PT/INR, D-dimer PT 12.7 Seconds (9.4-12.1) H 08/10/18 11:48 - Impressions Impressions Chest CT 08/10/18 13:05 IMPRESSION: Interval resolution of previously noted patchy areas of mild ground-glass opacity/consolidation to the lungs bilaterally as well as bilateral pleural effusions from prior CTA study 08/01/2018. Mild central bronchial wall thickening can be seen with bronchitis. Atherosclerosis to include coronary artery disease. D/ / 08/10/2018 14:23:46 [facility] Mac[facility] MD [facility] Interpreting Provider: Geovanny Macias MD Soft Tissue Neck CT 08/10/18 13:05 IMPRESSION: No acute abnormality of the soft tissue structures of the neck. 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 D/ / 08/10/2018 14:30:26 Herberth Perez / nighat Interpreting Provider: Herebrth Perez Cervical Spine CT 08/10/18 19:22 IMPRESSION: No acute cervical spine fracture. Multilevel cervical spondylosis is centered at C4-C5. Postsurgical changes of C5-C7 ACDF. D/ / Toy [place] / [place] Interpreting Provider: Toy [place] Consult Discharge Plan - Plan Referrals: Chava Johnston MD [Primary Care Provider] - (1) Cervical spondylosis Qualifiers: Spinal osteoarthritis complication: unspecified spinal osteoarthritis Qualified Code(s): M47.812 - Spondylosis without myelopathy or radiculopathy, cervical region (3) Acute bronchitis Qualifiers: Bronchitis organism: unspecified organism Qualified Code(s): J20.9 - Acute bronchitis, unspecified (4) Leukocytosis Qualifiers: Leukocytosis type: unspecified Qualified Code(s): D72.829 - Elevated white blood cell count, unspecified (7) Diabetes mellitus Qualifiers: Diabetes mellitus type: type 2 Diabetes mellitus fpc insulin use: without fpc use Diabetes mellitus complication status: without complication Qualified Code(s): E11.9 - Type 2 diabetes mellitus without complications
[2018-08-11] MEDS: amLODIPine 5 MG TABLET PO SCH (15:16)
[2018-08-12 04:21] LABS: Hematocrit 28.9 % (37.5-50.1); Hemoglobin 8.7 g/dL (12.9-16.9); Mean Corpuscular HGB Conc 30.1 g/dL (31.6-35.5); Mean Corpuscular Hemoglobin 22.1 pg (28.0-33.3); Mean Corpuscular Volume 73.4 fL (83.0-100.0); Mean Platelet Volume 10.6 fL (9.4-12.4); Platelet Count 363 K/mcL (140-400); Red Blood Count 3.94 M/mcL (4.19-5.50); Red Cell Distribution Width 21.9 % (11.5-14.5)
[2018-08-12 04:39] LABS: BUN/Creatinine Ratio 26 (6-26); Blood Urea Nitrogen 17 mg/dL (8-23); Calcium 8.7 mg/dL (8.6-10.3); Carbon Dioxide 25 mEq/L (23-29); Chloride 95 mEq/L (98-107); Glucose 162 mg/dL (70-105); Osmolality,Calculated 275 (280-300); Potassium 3.6 mEq/L (3.5-5.1); Sodium 130 mEq/L (136-145); eGFR For Non-African Americans > 60 (> 60)
[2018-08-12] MEDS: *HR* Heparin 5,000 UNIT/ML VIAL SQ SCH ×2 (05:59→17:19)
[2018-08-12] MEDS: Acetaminophen 325 MG TABLET PO PRN ×3 (06:00→21:12)
[2018-08-12] MEDS: Insulin LISPRO 300 UNITS/3 ML VIAL SQ SCH ×4 (08:26→21:17)
[2018-08-12] MEDS: Aspirin Enteric Coated 81 MG Tablet PO SCH (08:26)
[2018-08-12] MEDS: Magnesium Oxide 400 MG TABLET PO SCH (08:27)
[2018-08-12] MEDS: amLODIPine 5 MG TABLET PO SCH (08:27)
[2018-08-12] MEDS: Levofloxacin 500 MG/100 ML 500 MG/100 ML BAG IVPB SCH (08:27)
--- NOTE | 2018-08-12 08:50 | Spinal Consult Note ---
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 Afebrile vital signs stable. He has some limitation with external rotation of the neck to the right and left. He also has some limitation with extension. He is neurovascularly intact with regard to his bilateral upper extremities. He fires all upper extremity motor groups with good strength. He has a negative Micah sign. He has symmetrical reflexes in the upper and lower extremities. He has no clonus. CT scan of the cervical spine reveals multilevel degenerative changes. There is some straightening of the normal cervical lordosis. There is some foraminal stenosis which is mild to moderate at C4-5. There is evidence of previous anterior cervical fusion C5-C7 which is unremarkable without complications. There is no severe stenosis seen. Impression: 1) foraminal stenosis cervical spine 2) cervical spondylosis 3) s tatus post anterior cervical spine fusion C5-C7 Plan: The patient is not particularly symptomatic at this time. I have offered him to start a formal physical therapy and neck program on an outpatient basis if symptoms worsen. Patient understands she does not require any acute surgical intervention. The patient is amenable to this option will follow-up as he deems appropriate. No further care is required with regard to his cervical spine at this time. (2) Status post cervical spinal fusion Current Visit: Yes Status: Chronic History of Present Illness Chief complaint: Neck stiffness HPI: Mr. Velasco is a 63 year old male With history of cervical fusion was recently intubated and experienced neck pain and stiffness. He has subsequently been extubated but has had episodes where he still has stiffness in his neck. Currently his neck pain is mostly resolved. We are asked to see secondary to the symptoms as well as changes on CT spine examination which were concerning to patient and family. He denies any paresthesias of upper extremities, radicular symptoms, bowel bladder symptomatology, or weakness. Past Med Surg Social Fam HX - Past Medical History Medical history: arthritis, asthma, CVA, diabetes, hypertension Psychiatric history: no psych history - Past Surgical History Additional surgical history: neck/spinal fusion, toe implants, knee scope - Social History Smoking Status: Never smoker Smokeless Tobacco Status: No Alcohol use: rarely Drug use: none Medications and Allergies Aspirin [Adult Aspirin] 81 mg PO DAILY 08/01/18 [History] Atenolol 100 mg PO DAILY 08/01/18 [History] Atorvastatin [Lipitor] 40 mg PO HS 08/01/18 [History] Buspirone HCl [Buspar] 10 mg PO DAILY 08/01/18 [History] Clopidogrel [Plavix] 75 mg PO DAILY 08/01/18 [History] Cyclobenzaprine [Flexeril] 10 mg PO TID PRN 08/01/18 [History] Magnesium 125 mg PO DAILY 08/01/18 [History] Sertraline [Zoloft] 200 mg PO DAILY 08/01/18 [History] hydroCHLOROthiazide [Hydrochlorothiazide] 12.5 mg PO DAILY 08/01/18 [History] metFORMIN [Glucophage] 500 mg PO BID 08/01/18 [History] traZODone [TraZODone] 50 mg PO HS PRN 08/01/18 [History] Sildenafil Citrate [Viagra] 50 - 100 mg PO DAILY PRN 08/02/18 [History] Ferrous Sulfate 325 mg PO DAILY 10 Days #10 tablet 08/07/18 [Rx] Omeprazole [PriLOSEC] 40 mg PO DAILY 10 Days #10 cap 08/07/18 [Rx] predniSONE [PredniSONE] 10 mg PO TAPER 14 Days #56 tablet 08/07/18 [Rx] Albuterol Sulfate [Proair Hfa] 1 - 2 puff IH Q6HR PRN 08/11/18 [History] Allergy/AdvReac Type Severity Reaction Status Date / Time Iodinated Contrast- Oral and Allergy Angioedema Verified 08/10/18 11:32 IV Dye lisinopril Allergy Angioedema Verified 08/10/18 11:32 Penicillins [PCN] Allergy Hives Verified 08/10/18 11:32 shellfish derived AdvReac Intermediate See Verified 08/10/18 11:32 Comments cefuroxime [From Ceftin] AdvReac Diarrhea Verified 08/10/18 11:32 Results - Labs Result Diagrams: 08/12/18 03:43 08/12/18 03:43 Labs: Abnormal lab results WBC 11.2 K/mcL (4.3-11.1) H 08/12/18 03:43 RBC 3.94 M/mcL (4.19-5.50) L 08/12/18 03:43 Hgb 8.7 g/dL (12.9-16.9) L 08/12/18 03:43 Hct 28.9 % (37.5-50.1) L 08/12/18 03:43 MCV 73.4 fL (83.0-100.0) L 08/12/18 03:43 MCH 22.1 pg (28.0-33.3) L 08/12/18 03:43 MCHC 30.1 g/dL (31.6-35.5) L 08/12/18 03:43 RDW 21.9 % (11.5-14.5) H 08/12/18 03:43 Neutrophils # 12.2 K/mcL (1.6-8.9) H 08/11/18 04:26 Monocytes # 1.8 K/mcL (0.0-1.3) H 08/11/18 04:26 PT 12.7 Seconds (9.4-12.1) H 08/10/18 11:48 Sodium 130 mEq/L (136-145) L 08/12/18 03:43 Chloride 95 mEq/L (98-107) L 08/12/18 03:43 Creatinine 0.65 mg/dL (0.70-1.30) L 08/12/18 03:43 Glucose 162 mg/dL (70-105) H 08/12/18 03:43 POC Glucose 158 mg/dL (70-99) H 08/11/18 19:53 Calculated Osmolality 275 (280-300) L 08/12/18 03:43 Phosphorus 2.4 mg/dL (2.7-4.5) L 08/11/18 04:26 ALT 56 Units/L (7-52) H 08/10/18 12:07 B-Natriuretic Peptide 142 pg/mL (Less than 100) H 08/10/18 11:48 Ur Specific [place] 1.029 (1.010-1.025) H 08/10/18 14:30 Urine Glucose (UA) >=1000 mg/dL (Normal) H 08/10/18 14:30 Urine Microscopic RBC 3-5 per hpf (0-3) H 08/10/18 14:30 Ur Squamous Epith Cells Moderate per lpf (None-Few) H 08/10/18 14:30 Urine Bacteria Moderate per hpf (None-Few) H 08/10/18 14:30 Streptococcus sp PCR DETECTED (Not Detect) A 08/10/18 15:38 H & H 08/12/18 Range/Units 03:43 Hgb 8.7 L (12.9-16.9) g/dL Hct 28.9 L (37.5-50.1) % All other labs normal. Consult Discharge Plan - Plan Referrals: Preston,Chava Engel MD [Primary Care Provider] -
--- NOTE | 2018-08-12 15:58 | Internal Med Progress Note ---
Hospitalist Progress Note - Encounter Date of Encounter: 08/12/18 Time of Encounter: 15:55 - Subjective Interval History: Patient was seen and examined at bedside, at bedside, all questions answered. i discussed the mRI results. his neck has improved. denies N/V/D. dizziness has resolved. does report that he has had history of vestibular neuritis adn had previously taken melizine no other complaints - Exam Vitals: Temp Pulse Resp BP Pulse Ox 97.9 F 79 18 160/79 95 08/12/18 11:49 08/12/18 11:49 08/12/18 11:49 08/12/18 11:49 08/12/18 11:49 Exam: General: Patient is alert, oriented, no acute distress, obese Head: atraumatic, normocephalic, Eye: normal appearance, PERRL, no scleral icterus, no conjunctival injection, no photophobia ENT: mucous membranes moist, normal external ear exam Neck: normal inspection, trachea midline, large circumference, range of motion significantly reduced in all directions. Chest: normal inspection, symmetric chest rise Respiratory: Distant breath sounds secondary to body habitus, no wheezing, occasional crackles Cardiovascular: Distant heart sounds secondary to body habitus, Regular rate and rhythm. s1 and s2 No clicks, rubs, gallops, or murmors. Abdomen: Bowel sounds present normoactive x-4 quadrants. Abdomen is soft, nondistended. no Epigastric tenderness. No guarding or rebound. No organomegaly noted, obese musculoskeletal: Spontaneously moving all extremities, strength is 5 out of 5 in all extremities. no edema, no calf tenderness Skin: warm, dry, intact. Neuro: Alert and oriented x4. Sensation light touch intact. Cranial nerves 2- 12 is intact. Pronator sign negative, strength is 5 out of 5 in all extremities, negative Kerning and brudzinke sign, Psych: Patient's affect is normal - Assessment and Plan (1) Cervical spondylosis Current Visit: Yes Status: Acute Assessment and Plan: Neck pain is most likely secondary to cervical spondylosis doubt meningitis as he has no meningeal signs, no fever and is alert and oriented 3 Multi-level cervical spondylosis is centered at C4-C5 Postsurgical changes of C5-C7 Spine was consulted and Dr. Iyer's recommendations- appreciated Flexeril Lidocaine patch (2) Hyponatremia Current Visit: Yes Status: Acute Assessment and Plan: euvolemic hyponatremia denies poydipsia started on salt tablets, fluid restriction <1L holding HCTZ. (3) Pre-syncope Current Visit: Yes Status: Acute Assessment and Plan: Recent multiple episodes of presyncope. Recent echocardiogram from 08/02/18 showed LVEF 60-625%, normal LV chamber size and function, mild concentric left ventricular hypertrophy, normal right ventricular structure and function, mild pulmonary hypertension, no significant valvular dysfunction. Head CT unremarkable Carotid ultrasound unremarkable Continue telemetry monitoring Likely secondary to hypotension that was noticed in the emergency department ?secondary to hyponatremia Physical therapy Orthostatics pending MRI head - negative for acute abnormalities meclizine PRN for dizziness (4) Acute bronchitis Current Visit: Yes Status: Acute Assessment and Plan: Chest x-ray showed cardio medically with vascular congestion and mild left basilar atelectasis. Chest CT showed interval resolution of previously noted patchy areas of ground glass opacities, bilateral pleural effusions, mild central bronchial wall thickening Influenza negative Urine antigens pending We will continue Levaquin Duo nebs when necessary Continue prednisone and taper off (5) Leukocytosis Current Visit: Yes Status: Acute Assessment and Plan: Mr. Luther leukocytosis most likely secondary to steroids and acute bronchitis- trending down One of 2 blood culture from admission is going Gram-positive cocci most likely contaminant 2 more blood cultures sent on 08/11- NGTD [place] criteria low probability Continue to monitor CBC (6) Microcytic anemia Current Visit: Yes Status: Acute Assessment and Plan: Was recently admitted early July 2018 Endoscopy and colonoscopy performed which showed hemorrhoids however source was not found Was recommended to follow for capsule enteroscopy as outpatient We will continue to monitor hemoglobin if it trends down we will consider consulting GI Continue iron supplementation (7) History of CVA (cerebrovascular accident) Current Visit: No Status: Acute Assessment and Plan: Continue aspirin and Plavix Continue Lipitor BP control with home BP medications will adjust as per BP (8) Diabetes mellitus Current Visit: No Status: Chronic Assessment and Plan: hold metformin medium dose SSI, ADA diet, ACHS accuchecks. (9) Hypophosphatemia Current Visit: Yes Status: Acute Assessment and Plan: Replaced (10) DVT prophylaxis Current Visit: Yes Status: Resolved Assessment and Plan: heparin SQ - Time Spent with Patient Total time spent is greater than 50% in coordination of care (as documented) at patient's floor/unit and/or counseling patient: Internal Medicine: Result - Labs CBC & Chem 7: 08/12/18 03:43 08/12/18 03:43 Labs: Short CBC 08/12/18 Range/Units 03:43 WBC 11.2 H (4.3-11.1) K/mcL Hgb 8.7 L (12.9-16.9) g/dL Hct 28.9 L (37.5-50.1) % Plt Count 363 (140-400) K/mcL BMP 08/12/18 03:43 Sodium 130 L Potassium 3.6 Chloride 95 L Carbon Dioxide 25 BUN 17 Creatinine 0.65 L Glucose 162 H Calcium 8.7 - ABG Interpretation ABG results: PT/INR, D-dimer PT 12.7 Seconds (9.4-12.1) H 08/10/18 11:48 - Impressions Impressions Brain MRI 08/11/18 14:53 IMPRESSION: No acute intracranial abnormality or finding to suggest etiology of patient's symptoms. D/ / Geovanny Juarez / Geovanny Juarez Interpreting Provider: Geovanny Juarez Consult Discharge Plan - Plan Referrals: Chava Johnston MD [Primary Care Provider] - (1) Cervical spondylosis Qualifiers: Spinal osteoarthritis complication: unspecified spinal osteoarthritis Qualified Code(s): M47.812 - Spondylosis without myelopathy or radiculopathy, cervical region (4) Acute bronchitis Qualifiers: Bronchitis organism: unspecified organism Qualified Code(s): J20.9 - Acute bronchitis, unspecified (5) Leukocytosis Qualifiers: Leukocytosis type: unspecified Qualified Code(s): D72.829 - Elevated white blood cell count, unspecified (8) Diabetes mellitus Qualifiers: Diabetes mellitus type: type 2 Diabetes mellitus termination clerk insulin use: without senior living use Diabetes mellitus complication status: without complication Qualified Code(s): E11.9 - Type 2 diabetes mellitus without complications
[2018-08-13] MEDS: OXYCODONE Oral CONC 10 MG/0.5 ML ORAL.SYG SL PRN (01:07)
[2018-08-13] MEDS: *HR* Heparin 5,000 UNIT/ML VIAL SQ SCH (05:28)
[2018-08-13 07:47] LABS: Hematocrit 26.6 % (37.5-50.1); Hemoglobin 8.2 g/dL (12.9-16.9); Mean Corpuscular HGB Conc 30.8 g/dL (31.6-35.5); Mean Corpuscular Volume 71.3 fL (83.0-100.0); Mean Platelet Volume 10.4 fL (9.4-12.4); Platelet Count 328 K/mcL (140-400); Red Blood Count 3.73 M/mcL (4.19-5.50); Red Cell Distribution Width 22.2 % (11.5-14.5)
[2018-08-13 08:09] LABS: BUN/Creatinine Ratio 23 (6-26); Blood Urea Nitrogen 15 mg/dL (8-23); Calcium 8.4 mg/dL (8.6-10.3); Carbon Dioxide 27 mEq/L (23-29); Chloride 96 mEq/L (98-107); Glucose 150 mg/dL (70-105); Osmolality,Calculated 274 (280-300); Potassium 3.5 mEq/L (3.5-5.1); Sodium 130 mEq/L (136-145); eGFR For Non-African Americans > 60 (> 60)
[2018-08-13 08:22] LABS: Thyroid Stimulating Hormone 0.692 mcIU/mL (0.340-5.600)
[2018-08-13] MEDS: Insulin LISPRO 300 UNITS/3 ML VIAL SQ SCH (09:35)
[2018-08-13] MEDS: Magnesium Oxide 400 MG TABLET PO SCH (09:36)
[2018-08-13] MEDS: amLODIPine 5 MG TABLET PO SCH (09:36)
[2018-08-13] MEDS: Aspirin Enteric Coated 81 MG Tablet PO SCH (09:37)
[2018-08-13] MEDS: Levofloxacin 500 MG/100 ML 500 MG/100 ML BAG IVPB SCH (09:37)
--- NOTE | 2018-08-13 10:17 | Discharge Summary ---
- NOTES TO OUTPATIENT PROVIDER Notes to Outpatient Provider: Follow-up with spine surgery as outpatient. Follow with cardiology as outpatient. Follow with PCP and have BMP repeated. Follow with GI as outpatient for capsule endoscopy. Orders not resulted at time of discharge: Pending orders 08/10/18 15:38 Culture,Blood [BC] Stat 08/11/18 08:43 Culture,Blood [BC] Stat 08/11/18 10:55 Occult Blood,Stool [BF] Routine 08/13/18 09:22 Streptococcus A Rapid Test [RM] Routine Date of Encounter: 08/13/18 Time of Encounter: 10:15 - Discharge Diagnosis (1) Cervical spondylosis Priority: Primary Status: Acute Qualifiers: Spinal osteoarthritis complication: unspecified spinal osteoarthritis Qualified Code(s): M47.812 - Spondylosis without myelopathy or radiculopathy, cervical region (2) Hyponatremia Priority: Secondary Status: Acute (3) Pre-syncope Priority: Secondary Status: Acute (4) Acute bronchitis Priority: Secondary Status: Acute Qualifiers: Bronchitis organism: unspecified organism Qualified Code(s): J20.9 - Acute bronchitis, unspecified (5) Leukocytosis Priority: Secondary Status: Acute Qualifiers: Leukocytosis type: unspecified Qualified Code(s): D72.829 - Elevated white blood cell count, unspecified (6) Microcytic anemia Priority: Secondary Status: Acute (7) History of CVA (cerebrovascular accident) Priority: Secondary Status: Acute (8) Diabetes mellitus Priority: Secondary Status: Chronic Qualifiers: Diabetes mellitus type: type 2 Diabetes mellitus senior care insulin use: without senior care use Diabetes mellitus complication status: without complication Qualified Code(s): E11.9 - Type 2 diabetes mellitus without complications (9) Hypophosphatemia Priority: Secondary Status: Acute (10) DVT prophylaxis Priority: Secondary Status: Resolved Hospital course: "Mr. Velasco is a 63 year old male with past medical history of CVA (on plavix), diabetes, hypertension, hyperlipidemia, cervical spondylosis. Patient was recently hospitalized from 08/01-08/07. During this time, he was transfused for anemia, and plan was to get EGD/colonoscopy for anemia workup. However, while taking his bowel prep, he develop severe anaphylaxis requiring intubation and was transferred to the ICU. He eventually did receive EGD and colonoscopy that were unremarkable. Plan was for outpatient Endoscopy. There was also concern for CHF vs. Transfusion related lung injury. Today, he was at the doctors office for Hospital follow-up. He was asked to lie down, and then upon sitting up, his SBP dropped significantly (about 25mmHg). Patient also has been short of breath and generally not feeling well since his last hospitalization. Patient states that he does have history of vertical. However over the last couple weeks he has been experiencing significant dizziness and pre-syncopal episodes. When he gets up from a seated position he develop significant dizziness, lightheadedness. He denies any episodes of syncope. He denies any sensation of palpitations. He denies nausea, vomiting, diarrhea, fever, chills. He does report intermittent shortness of breath. He denies hematuria, hematochezia, melena." Patient presented with above presentation and was admitted for presyncope, acute bronchitis and exacerbation of neck osteoarthritis. CT scan of the chest was performed in the emergency department which showed interval resolution of the previously noted patchy areas of mild groundglass opacities to the lungs bilaterally as well as the bilateral pleural effusions from the previous CTA study on 08/01/18. However it did show mild central bronchial wall thickening that was most likely secondary to bronchitis. He was started on Levaquin with resolution of his leukocytosis that was seen on admission. He remained afebrile throughout the admission. One blood culture obtained in the emergency department from this admission showed group C streptococcus however most likely a contaminant as the other blood culture obtained at the same time and date is no growth to date. 2 more blood cultures were sent on 08/11 which are no growth to date. [place] criteria low probability for endocarditis. Legionella and strep pneumoniae antigens negative. Influenza negative. CT soft tissue neck showed no acute abnormality. CT cervical spine showed multilevel cervical spondylosis at C4-C5 and postsurgical changes of C5-C7 spine surgery was consulted and recommended outpatient follow- up with physical therapy. MRI head was performed to rule out posterior fossa stroke and it showed no acute abnormal abnormalities. Carotid Dopplers performed and showed nonstenotic plaques. He showed hyponatremia and hypochloremia on BMP since admission. Hydrochlorothiazide was discontinued. He was told to refrain from excessive oral hydration. He is to have a follow-up BMP performed by his primary care physician. He was started on Flexeril with improvement of his neck range of motion. Referral was made for outpatient physical therapy. His gait was steady and his dizziness resolved he did report that he has history of vestibular neuritis and was previously treated with meclizine. He remained hypertensive throughout admission. Atenolol was changed to Coreg 6.25 mg twice a day for PCP follow blood pressures and adjust medications as per their discretion. He was told to have close follow-up with his primary care physician. He is to follow up with GI as it was recommended on his last admission to have a capsule endoscopy performed. continue iron supplements and He is to follow-up with cardiology team. for PCP to follow BMP and CBC. CT chest: IMPRESSION: Interval resolution of previously noted patchy areas of mild ground-glass opacity/consolidation to the lungs bilaterally as well as bilateral pleural effusions from prior CTA study 08/01/2018. Mild central bronchial wall thickening can be seen with bronchitis. Atherosclerosis to include coronary artery disease. CT soft tissue neck: IMPRESSION: No acute abnormality of the soft tissue structures of the neck. 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 CT cervical spine: IMPRESSION: No acute cervical spine fracture. Multilevel cervical spondylosis is centered at C4-C5. Postsurgical changes of C5-C7 ACDF[address] CT cervical spine: Impressions: Findings: Bilateral carotid systems have nonstenotic plaque. Note: Not all vessels were visualized and this was technically a difficult study to perform. MRI head: IMPRESSION: No acute intracranial abnormality or finding to suggest etiology of patient's symptoms. Discharge discussed with: patient, family, nurse - Time Spent with Patient Total time spent providing and/or coordinating discharge services: Greater than 30 minutes - Discharge Medications Prescriptions: amLODIPine [Norvasc] 10 mg PO DAILY 30 Days #60 tablet Carvedilol [Coreg] 6.25 mg PO BIDWM 30 Days #60 tablet Levofloxacin [Levaquin] 750 mg PO DAILY 3 Days #3 tablet Home Medications: Aspirin [Adult Aspirin] 81 mg PO DAILY 08/01/18 [History] Atorvastatin [Lipitor] 40 mg PO HS 08/01/18 [History] Buspirone HCl [Buspar] 10 mg PO DAILY 08/01/18 [History] Clopidogrel [Plavix] 75 mg PO DAILY 08/01/18 [History] Cyclobenzaprine [Flexeril] 10 mg PO TID PRN 08/01/18 [History] Magnesium 125 mg PO DAILY 08/01/18 [History] Sertraline [Zoloft] 200 mg PO DAILY 08/01/18 [History] metFORMIN [Glucophage] 500 mg PO BID 08/01/18 [History] traZODone [TraZODone] 50 mg PO HS PRN 08/01/18 [History] Sildenafil Citrate [Viagra] 50 - 100 mg PO DAILY PRN 08/02/18 [History] Ferrous Sulfate 325 mg PO DAILY 10 Days #10 tablet 08/07/18 [Rx] Omeprazole [PriLOSEC] 40 mg PO DAILY 10 Days #10 cap 08/07/18 [Rx] predniSONE [PredniSONE] 10 mg PO TAPER 14 Days #56 tablet 08/07/18 [Rx] Albuterol Sulfate [Proair Hfa] 1 - 2 puff IH Q6HR PRN 08/11/18 [History] Carvedilol [Coreg] 6.25 mg PO BIDWM 30 Days #60 tablet 08/13/18 [Rx] Levofloxacin [Levaquin] 750 mg PO DAILY 3 Days #3 tablet 08/13/18 [Rx] amLODIPine [Norvasc] 10 mg PO DAILY 30 Days #60 tablet 08/13/18 [Rx] Allergies/Adverse Reactions: Allergy/AdvReac Type Severity Reaction Status Date / Time Iodinated Contrast- Oral and Allergy Angioedema Verified 08/10/18 11:32 IV Dye lisinopril Allergy Angioedema Verified 08/10/18 11:32 Penicillins [PCN] Allergy Hives Verified 08/10/18 11:32 shellfish derived AdvReac Intermediate See Verified 08/10/18 11:32 Comments cefuroxime [From Ceftin] AdvReac Diarrhea Verified 08/10/18 11:32 Date of admission: 08/10/18 16:25 Primary care physician: Chava Johnston MD Consults: 08/11/18 10:51 Consult to Physician [CONS] Routine Consulting Provider: Abhay Iyer Jr Reason for Consult: severe neck pain CT neck IMPRESSION: No acute cervical spine fracture. Multilevel cervical spondylosis is centered at C4-C5. Postsurgical changes of C5-C7 ACDF. Call Completed: No - Constitutional Vitals: Temp Pulse Resp BP Pulse Ox 98.0 F 77 15 179/87 94 08/13/18 06:57 08/13/18 06:57 08/13/18 06:57 08/13/18 06:57 08/13/18 06:57 Exam: General: Patient is alert, oriented, no acute distress, obese Head: atraumatic, normocephalic, Eye: normal appearance, PERRL, no scleral icterus, no conjunctival injection, no photophobia ENT: mucous membranes moist, normal external ear exam Neck: normal inspection, trachea midline, large circumference, range of motion significantly reduced in all directions- improved. Chest: normal inspection, symmetric chest rise Respiratory: Distant breath sounds secondary to body habitus, no wheezing, occasional crackles Cardiovascular: Distant heart sounds secondary to body habitus, Regular rate and rhythm. s1 and s2 No clicks, rubs, gallops, or murmors. Abdomen: Bowel sounds present normoactive x-4 quadrants. Abdomen is soft, nondistended. no Epigastric tenderness. No guarding or rebound. No organomegaly noted, obese musculoskeletal: Spontaneously moving all extremities, strength is 5 out of 5 in all extremities. no edema, no calf tenderness Skin: warm, dry, intact. No splinter hemorrhages no osler nodes Neuro: Alert and oriented x4. Sensation light touch intact. Cranial nerves 2- 12 is intact. Pronator sign negative, strength is 5 out of 5 in all extremities, negative Kerning and brudzinke sign, Psych: Patient's affect is normal - Patient Status Disposition: Home, Self-Care Condition: Fair Functional capacity at discharge: independent ambulation Overall status at discharge: patient is progressing back to baseline - Discharge Instructions Follow Up With: Chava Johnston MD [Primary Care Provider] - Kath Canales MD [Partnered Physician] - - Diet and Activity Activity: increase activity as tolerated Diet: advance to your usual diet, low fat, low cholesterol
[2018-08-13 11:23] VITALS: BP 169/88
--- NOTE | 2018-08-13 11:27 | Physician Discharge Referral ---
Home Health/Hosp Referral Info Transfer to: Home Health Provider in Charge Post Discharge: PCP - Diagnosis (1) Cervical spondylosis Priority: Primary Status: Acute (2) Hyponatremia Status: Acute (3) Pre-syncope Status: Acute (4) Acute bronchitis Status: Acute (5) Leukocytosis Status: Acute (6) Microcytic anemia Status: Acute (7) History of CVA (cerebrovascular accident) Status: Acute (8) Diabetes mellitus Status: Chronic (9) Hypophosphatemia Status: Acute (10) DVT prophylaxis Status: Resolved - Respiratory Orders Smoking Cessation: Smoking cessation has been advised. For more information, call the [place] Tobacco Quit Line at 7-002-ZUYO-NOW. - Services Needed Following services are medically necessary services: Physical Therapy - Transfer Medications Prescriptions: amLODIPine [Norvasc] 10 mg PO DAILY 30 Days #60 tablet Carvedilol [Coreg] 6.25 mg PO BIDWM 30 Days #60 tablet Levofloxacin [Levaquin] 750 mg PO DAILY 3 Days #3 tablet Home Medications: Aspirin [Adult Aspirin] 81 mg PO DAILY 08/01/18 [History] Atorvastatin [Lipitor] 40 mg PO HS 08/01/18 [History] Buspirone HCl [Buspar] 10 mg PO DAILY 08/01/18 [History] Clopidogrel [Plavix] 75 mg PO DAILY 08/01/18 [History] Cyclobenzaprine [Flexeril] 10 mg PO TID PRN 08/01/18 [History] Magnesium 125 mg PO DAILY 08/01/18 [History] Sertraline [Zoloft] 200 mg PO DAILY 08/01/18 [History] metFORMIN [Glucophage] 500 mg PO BID 08/01/18 [History] traZODone [TraZODone] 50 mg PO HS PRN 08/01/18 [History] Sildenafil Citrate [Viagra] 50 - 100 mg PO DAILY PRN 08/02/18 [History] Ferrous Sulfate 325 mg PO DAILY 10 Days #10 tablet 08/07/18 [Rx] Omeprazole [PriLOSEC] 40 mg PO DAILY 10 Days #10 cap 08/07/18 [Rx] predniSONE [PredniSONE] 10 mg PO TAPER 14 Days #56 tablet 08/07/18 [Rx] Albuterol Sulfate [Proair Hfa] 1 - 2 puff IH Q6HR PRN 08/11/18 [History] Carvedilol [Coreg] 6.25 mg PO BIDWM 30 Days #60 tablet 08/13/18 [Rx] Levofloxacin [Levaquin] 750 mg PO DAILY 3 Days #3 tablet 08/13/18 [Rx] amLODIPine [Norvasc] 10 mg PO DAILY 30 Days #60 tablet 08/13/18 [Rx] Allergies/Adverse Reactions: Allergy/AdvReac Type Severity Reaction Status Date / Time Iodinated Contrast- Oral and Allergy Angioedema Verified 08/10/18 11:32 IV Dye lisinopril Allergy Angioedema Verified 08/10/18 11:32 Penicillins [PCN] Allergy Hives Verified 08/10/18 11:32 shellfish derived AdvReac Intermediate See Verified 08/10/18 11:32 Comments cefuroxime [From Ceftin] AdvReac Diarrhea Verified 08/10/18 11:32 Certification: Further, I certify that my clinical findings support that this patient is homebound (i.e. absences from home require considerable and taxing effort and are for medical reasons or sabianist services or infrequently or short duration when for other reasons) because: Homebound Reason: Patient requires assistance of a person or device to safely leave home Attestation: My signature below is to certify that this patient is under my care and that I, or nurse practitioner, or a physician's assistant produce manager working with me, has a fa ce-to-face encounter with this patient.
--- NOTE | 2018-08-13 15:49 | Electrocardiograph Report ---
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
--- NOTE | 2018-08-13 15:49 | Electrocardiograph Report ---
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
== END 2018-08-13 15:25 | disposition home or self-care (01) ==
LOC: 2NENU 11:22 → EMEROOARM 11:22 → SUATTDRO 16:25 → 2NENU 18:02
PROVIDERS: ADMIT Internal Medicine; ATTEND Internal Medicine

== ENCOUNTER 2018-09-03 10:45 | Observation (INO) ==
[2018-09-03 11:28] LABS: Basophils % 0.2 %; Eosinophils % 0.4 %; Hematocrit 29.6 % (37.5-50.1); Immature Granulocytes % 0.6 % (0-4); Lymphocytes # 0.8 K/mcL (0.6-4.6); Lymphocytes % 7.2 %; Mean Corpuscular HGB Conc 30.4 g/dL (31.6-35.5); Mean Corpuscular Hemoglobin 21.8 pg (28.0-33.3); Mean Corpuscular Volume 71.8 fL (83.0-100.0); Mean Platelet Volume 9.1 fL (9.4-12.4); Neutrophils # 8.8 K/mcL (1.6-8.9); Platelet Count 382 K/mcL (140-400); Red Blood Count 4.12 M/mcL (4.19-5.50); Red Cell Distribution Width 22.7 % (11.5-14.5); Segmented Neutrophils % 82.6 %
--- NOTE | 2018-09-03 11:41 | Emergency Department Note ---
Disposition Clinical Impression: Hyponatremia, Weakness, Dehydration Anemia Qualifiers: Anemia type: unspecified type Qualified Code(s): D64.9 - Anemia, unspecified UTI (urinary tract infection) Qualifiers: Urinary tract infection type: site unspecified Hematuria presence: with hematuria Qualified Code(s): N39.0 - Urinary tract infection, site not specified Disposition: Admitted As Inpatient Condition: Good Referrals: Chava Johnston MD [Primary Care Provider] - Forms: ED Satisfaction Letter Time of Disposition: 12:56 General Adult HPI - General Chief complaint: ED Neuro Symptoms/Deficit Stated complaint: AMS/Neuro Time Seen by Provider: 09/03/18 10:53 Source: patient, family Mode of arrival: ambulatory Limitations: no limitations, physical limitation Nursing Notes Reviewed: Yes Vital Signs Reviewed: Yes - History of Present Illness HPI Narrative: Patient is a 63-year-old male with past medical history of multiple CVAs, diabetes, high blood pressure, cervical spine surgery presents to the emergency department for evaluation of generalized weakness, difficulty with speech and weight loss has been occurring since June 2018. states patient symptoms are getting worse and is having difficulty with ambulation. She states recently seen for [facility] states they were unable to find a cause for his symptoms. Denies any recent focal neurological deficits just worsening of his current condition. Pain Scale: 9 - Related Data Home Medications Medication Instructions Recorded Confirmed Aspirin [Adult Aspirin] 81 mg PO DAILY 08/01/18 09/03/18 Atorvastatin [Lipitor] 40 mg PO HS 08/01/18 09/03/18 Buspirone HCl [Buspar] 10 mg PO DAILY 08/01/18 09/03/18 Clopidogrel [Plavix] 75 mg PO DAILY 08/01/18 09/03/18 Cyclobenzaprine [Flexeril] 10 mg PO TID PRN 08/01/18 09/03/18 Magnesium 125 mg PO DAILY 08/01/18 09/03/18 Sertraline [Zoloft] 200 mg PO DAILY 08/01/18 09/03/18 metFORMIN [Glucophage] 500 mg PO BID 08/01/18 09/03/18 traZODone [TraZODone] 50 mg PO HS PRN 08/01/18 09/03/18 Sildenafil Citrate [Viagra] 50 - 100 mg PO DAILY PRN 08/02/18 09/03/18 Albuterol Sulfate [Proair Hfa] 1 - 2 puff IH Q6HR PRN 08/11/18 09/03/18 Ferrous Sulfate 325 mg PO DAILY 09/03/18 09/03/18 Pantoprazole Sodium [Protonix] 40 mg PO DAILY 09/03/18 09/03/18 hydroCHLOROthiazide 12.5 mg PO DAILY 09/03/18 09/03/18 [Hydrochlorothiazide] Previous Rx's Medication Instructions Recorded Carvedilol [Coreg] 6.25 mg PO BIDWM 30 Days #60 tablet 08/13/18 amLODIPine [Norvasc] 10 mg PO DAILY 30 Days #60 tablet 08/13/18 Allergies Allergy/AdvReac Type Severity Reaction Status Date / Time Iodinated Contrast- Oral and Allergy Angioedema Verified 08/10/18 11:32 IV Dye lisinopril Allergy Angioedema Verified 08/10/18 11:32 Penicillins [PCN] Allergy Hives Verified 08/10/18 11:32 shellfish derived AdvReac Intermediate See Verified 08/10/18 11:32 Comments cefuroxime [From Ceftin] AdvReac Diarrhea Verified 08/10/18 11:32 iopamidol AdvReac See Verified 09/03/18 10:49 Comments All systems ED: reviewed and negative except as stated. Review of Systems: As Per HPI Constitutional: Reports: weakness. Denies: fever, chills Cardiovascular: Denies: chest pain, palpitations, dyspnea on exertion Respiratory: Denies: cough, dyspnea, wheezes Gastrointestinal: Denies: abdominal pain, nausea, vomiting Genitourinary: Denies: urgency Past Medical History - Past Medical History Attestation: Yes The following information was validated with the patient. Medical history: Reports: arthritis, asthma, CVA, diabetes, hypertension Psychiatric history: Reports: no psych history - Social History Smoking Status: Never smoker Smokeless Tobacco Status: No Alcohol use: Reports: rarely Drug use: Reports: none Physical Exam - General Limitations: physical limitation General appearance: alert, in no apparent distress - Head Head exam: atraumatic, normocephalic, normal inspection - Eye Eye exam: Present: normal appearance, PERRL, EOMI - ENT ENT exam: normal exam, normal oropharynx, mucous membranes moist - Neck Neck exam: Present: normal inspection, full ROM, trachea midline - Chest Chest inspection: Present: normal inspection, symmetric chest wall rise. Absent: tenderness - Respiratory Respiratory exam: Present: normal lung sounds bilaterally. Absent: respiratory distress, wheezes - Cardiovascular Cardiovascular exam: Present: regular rate, normal rhythm, normal heart sounds, +S1, +S2 - Abdominal Exam Abdominal exam: Present: soft, Non-Tender. Absent: tenderness, distention, guarding, rebound, rigidity - Extremities Exam Extremities exam: Present: normal inspection, full ROM. Absent: tenderness, pedal edema - Back Exam Back exam: Present: normal inspection, full ROM. Absent: tenderness - Neurological Exam Neurological exam: Present: alert, oriented X3 - Psychiatric Psychiatric exam: Present: normal affect, normal mood - Skin Skin exam: Present: warm, dry, intact, normal color Course Course Narrative: Patient underwent evaluation for his chronic weakness. Labwork was remarkable for hyponatremia 126. Is also anemic with a hemoglobin of 9 however this is chronic. His urine was also concerning for dehydration as well as signs of infection. I discussed the patient's case with the hospitalist discussed plan at this time to admit him for hyponatremia as well as treating his urinary tract infection. Discussed that he had negative imaging including a head CT and a chest x-ray. Patient was updated with the plan and he agrees. Vital Signs Temperature 98.3 F 09/03/18 10:46 Pulse Rate 82 09/03/18 10:46 Respiratory Rate 16 09/03/18 10:46 Blood Pressure 118/70 09/03/18 10:46 O2 Sat by Pulse Oximetry 97 09/03/18 10:46 Temperature 99.5 F 09/03/18 11:00 Pulse Rate 85 09/03/18 13:43 Respiratory Rate 19 09/03/18 13:43 Blood Pressure 168/83 09/03/18 13:43 O2 Sat by Pulse Oximetry 97 09/03/18 13:43 Oxygen Delivery Oxygen Delivery Room Air Medical Decision Making - Medical Records Medical records reviewed: Yes I reviewed the patient's medical records. - Lab Data Lab results reviewed: Yes I reviewed the patient's lab results. Result diagrams: 09/03/18 11:09 09/03/18 11:09 Lab Results 09/03/18 09/03/18 09/03/18 Range/Units 11:09 11:09 11:22 WBC 10.6 (4.3-11.1) K/mcL RBC 4.12 L (4.19-5.50) M/mcL Hgb 9.0 L (12.9-16.9) g/dL Hct 29.6 L (37.5-50.1) % MCV 71.8 L (83.0-100.0) fL MCH 21.8 L (28.0-33.3) pg MCHC 30.4 L (31.6-35.5) g/dL RDW 22.7 H (11.5-14.5) % Plt Count 382 (140-400) K/mcL MPV 9.1 L (9.4-12.4) fL Immature Gran % 0.6 (0-4) % Seg Neutrophils % 82.6 % Lymphocytes % 7.2 % Monocytes % 9.0 % Eosinophils % 0.4 % Basophils % 0.2 % Neutrophils # 8.8 (1.6-8.9) K/mcL Lymphocytes # 0.8 (0.6-4.6) K/mcL Monocytes # 1.0 (0.0-1.3) K/mcL Eosinophils # 0.0 (0.0-0.6) K/mcL Basophils # 0.0 (0.0-0.2) K/mcL VBG pH (7.32-7.42) pH Units VBG pCO2 (41-51) mmHg VBG pO2 (25-50) mmHg VBG HCO3 (21-27) mEq/L Sodium 126 L (136-145) mEq/L Potassium 3.9 (3.5-5.1) mEq/L Chloride 92 L (98-107) mEq/L Carbon Dioxide 25 (23-29) mEq/L BUN 12 (8-23) mg/dL Creatinine 0.73 (0.70-1.30) mg/dL Est GFR ( Amer) > 60 (> 60) Est GFR (Non-Af Amer) > 60 (> 60) BUN/Creatinine Ratio 16 (6-26) Glucose 227 H (70-105) mg/dL POC Glucose 216 H (70-99) mg/dL Calculated Osmolality 269 L (280-300) Calcium 9.3 (8.6-10.3) mg/dL Total Bilirubin 0.5 (0.3-1.0) mg/dL Direct Bilirubin 0.1 (0.0-0.2) mg/dL Indirect Bilirubin 0.4 (0.0-1.2) mg/dL AST 16 (13-39) Units/L ALT 19 (7-52) Units/L Alkaline Phosphatase 94 (34-104) Units/L Troponin I < 0.03 (< 0.04) ng/mL Serum Total Protein 7.4 (6.4-8.9) g/dL Albumin 3.2 L (3.5-5.7) g/dL Globulin 4.2 H (2.4-3.5) g/dL Albumin/Globulin Ratio 0.8 L (1.1-2.2) Beta-Hydroxybutyric Acd (0.02-0.27) mmol/L TSH 0.753 (0.340-5.600) mcIU/mL Urine Color (Yellow) Urine Clarity (Clear) Urine pH (5.0-8.0) pH Units Ur Specific [place] (1.010-1.025) Urine Protein (Neg-Trace) mg/dL Urine Glucose (UA) (Normal) mg/dL Urine Ketones (Negative) mg/dL Urine Blood (Negative) Urine Nitrite (Negative) Urine Bilirubin (Negative) Urine Urobilinogen (Normal) mg/dL Ur Leukocyte Esterase (Negative) Urine Microscopic RBC (0-3) per hpf Urine Microscopic WBC (0-3) per hpf Ur Squamous Epith Cells (None-Few) per lpf Urine Bacteria (None-Few) per hpf Hyaline Casts (None-Few) per lpf Granular Casts (None Seen) per lpf Urine Mucus (Few) Ur Culture Indicated? (NO) Urine Opiates Screen (Jryjjj=531) ng/mL Ur Barbiturates Screen (Jvvfvc=502) ng/mL Ur Phencyclidine Scrn (Cutoff=25) ng/mL Ur Amphetamines Screen (Jjjkfm=6385) ng/mL U Benzodiazepines Scrn (Akpgjt=690) ng/mL Urine Cocaine Screen (Cutoff= 300) ng/mL U Marijuana (THC) Screen (Cutoff = 50) ng/mL Ur Drug Screen Interp Ethyl Alcohol < 10 (Less than 10) mg/dL 09/03/18 09/03/18 09/03/18 Range/Units 12:22 12:22 12:31 WBC (4.3-11.1) K/mcL RBC (4.19-5.50) M/mcL Hgb (12.9-16.9) g/dL Hct (37.5-50.1) % MCV (83.0-100.0) fL MCH (28.0-33.3) pg MCHC (31.6-35.5) g/dL RDW (11.5-14.5) % Plt Count (140-400) K/mcL MPV (9.4-12.4) fL Immature Gran % (0-4) % Seg Neutrophils % % Lymphocytes % % Monocytes % % Eosinophils % % Basophils % % Neutrophils # (1.6-8.9) K/mcL Lymphocytes # (0.6-4.6) K/mcL Monocytes # (0.0-1.3) K/mcL Eosinophils # (0.0-0.6) K/mcL Basophils # (0.0-0.2) K/mcL VBG pH (7.32-7.42) pH Units VBG pCO2 (41-51) mmHg VBG pO2 (25-50) mmHg VBG HCO3 (21-27) mEq/L Sodium (136-145) mEq/L Potassium (3.5-5.1) mEq/L Chloride (98-107) mEq/L Carbon Dioxide (23-29) mEq/L BUN (8-23) mg/dL Creatinine (0.70-1.30) mg/dL Est GFR ( Amer) (> 60) Est GFR (Non-Af Amer) (> 60) BUN/Creatinine Ratio (6-26) Glucose (70-105) mg/dL POC Glucose (70-99) mg/dL Calculated Osmolality (280-300) Calcium (8.6-10.3) mg/dL Total Bilirubin (0.3-1.0) mg/dL Direct Bilirubin (0.0-0.2) mg/dL Indirect Bilirubin (0.0-1.2) mg/dL AST (13-39) Units/L ALT (7-52) Units/L Alkaline Phosphatase (34-104) Units/L Troponin I (< 0.04) ng/mL Serum Total Protein (6.4-8.9) g/dL Albumin (3.5-5.7) g/dL Globulin (2.4-3.5) g/dL Albumin/Globulin Ratio (1.1-2.2) Beta-Hydroxybutyric Acd 0.55 H (0.02-0.27) mmol/L TSH (0.340-5.600) mcIU/mL Urine Color Dark Yellow (Yellow) Urine Clarity Turbid A (Clear) Urine pH 6.0 (5.0-8.0) pH Units Ur Specific [place] 1.018 (1.010-1.025) Urine Protein 30 H (Neg-Trace) mg/dL Urine Glucose (UA) 250 H (Normal) mg/dL Urine Ketones 15 H (Negative) mg/dL Urine Blood Moderate H (Negative) Urine Nitrite Negative (Negative) Urine Bilirubin Small H (Negative) Urine Urobilinogen Normal (Normal) mg/dL Ur Leukocyte Esterase Trace H (Negative) Urine Microscopic RBC 0-3 (0-3) per hpf Urine Microscopic WBC 5-15 H (0-3) per hpf Ur Squamous Epith Cells Few (None-Few) per lpf Urine Bacteria Moderate H (None-Few) per hpf Hyaline Casts Moderate H (None-Few) per lpf Granular Casts Few H (None Seen) per lpf Urine Mucus Many H (Few) Ur Culture Indicated? YES A (NO) Urine Opiates Screen Positive H ([place]=425) ng/mL Ur Barbiturates Screen Negative (Vxlgqw=186) ng/mL Ur Phencyclidine Scrn Negative (Cutoff=25) ng/mL Ur Amphetamines Screen Negative (Gzplcp=2224) ng/mL U Benzodiazepines Scrn Positive H (Qdbzcn=247) ng/mL Urine Cocaine Screen Negative (Cutoff= 300) ng/mL U Marijuana (THC) Screen Positive H (Cutoff = 50) ng/mL Ur Drug Screen Interp See Below Ethyl Alcohol (Less than 10) mg/dL 09/03/18 Range/Units 12:50 WBC (4.3-11.1) K/mcL RBC (4.19-5.50) M/mcL Hgb (12.9-16.9) g/dL Hct (37.5-50.1) % MCV (83.0-100.0) fL MCH (28.0-33.3) pg MCHC (31.6-35.5) g/dL RDW (11.5-14.5) % Plt Count (140-400) K/mcL MPV (9.4-12.4) fL Immature Gran % (0-4) % Seg Neutrophils % % Lymphocytes % % Monocytes % % Eosinophils % % Basophils % % Neutrophils # (1.6-8.9) K/mcL Lymphocytes # (0.6-4.6) K/mcL Monocytes # (0.0-1.3) K/mcL Eosinophils # (0.0-0.6) K/mcL Basophils # (0.0-0.2) K/mcL VBG pH 7.49 H (7.32-7.42) pH Units VBG pCO2 32 L (41-51) mmHg VBG pO2 199 H (25-50) mmHg VBG HCO3 24 (21-27) mEq/L Sodium (136-145) mEq/L Potassium (3.5-5.1) mEq/L Chloride (98-107) mEq/L Carbon Dioxide (23-29) mEq/L BUN (8-23) mg/dL Creatinine (0.70-1.30) mg/dL Est GFR ( Amer) (> 60) Est GFR (Non-Af Amer) (> 60) BUN/Creatinine Ratio (6-26) Glucose (70-105) mg/dL POC Glucose (70-99) mg/dL Calculated Osmolality (280-300) Calcium (8.6-10.3) mg/dL Total Bilirubin (0.3-1.0) mg/dL Direct Bilirubin (0.0-0.2) mg/dL Indirect Bilirubin (0.0-1.2) mg/dL AST (13-39) Units/L ALT (7-52) Units/L Alkaline Phosphatase (34-104) Units/L Troponin I (< 0.04) ng/mL Serum Total Protein (6.4-8.9) g/dL Albumin (3.5-5.7) g/dL Globulin (2.4-3.5) g/dL Albumin/Globulin Ratio (1.1-2.2) Beta-Hydroxybutyric Acd (0.02-0.27) mmol/L TSH (0.340-5.600) mcIU/mL Urine Color (Yellow) Urine Clarity (Clear) Urine pH (5.0-8.0) pH Units Ur Specific [place] (1.010-1.025) Urine Protein (Neg-Trace) mg/dL Urine Glucose (UA) (Normal) mg/dL Urine Ketones (Negative) mg/dL Urine Blood (Negative) Urine Nitrite (Negative) Urine Bilirubin (Negative) Urine Urobilinogen (Normal) mg/dL Ur Leukocyte Esterase (Negative) Urine Microscopic RBC (0-3) per hpf Urine Microscopic WBC (0-3) per hpf Ur Squamous Epith Cells (None-Few) per lpf Urine Bacteria (None-Few) per hpf Hyaline Casts (None-Few) per lpf Granular Casts (None Seen) per lpf Urine Mucus (Few) Ur Culture Indicated? (NO) Urine Opiates Screen (Ezvjcb=076) ng/mL Ur Barbiturates Screen (Zecewy=620) ng/mL Ur Phencyclidine Scrn (Cutoff=25) ng/mL Ur Amphetamines Screen (Oiearv=4966) ng/mL U Benzodiazepines Scrn (Rxujxm=448) ng/mL Urine Cocaine Screen (Cutoff= 300) ng/mL U Marijuana (THC) Screen (Cutoff = 50) ng/mL Ur Drug Screen Interp Ethyl Alcohol (Less than 10) mg/dL - Radiology Data Radiology results reviewed: Yes I reviewed the patient's radiology results. Chest X-Ray 09/03/18 10:53 IMPRESSION: No acute process identified. D/ / Tobias Valdez MD / Tobias Valdez MD Interpreting Provider: Tobias Valdez MD Head CT 09/03/18 10:54 IMPRESSION: 1. No acute intracranial abnormality. D/ / Jos Boone MD / Jos Boone MD Interpreting Provider: Jos Boone MD - EKG Data EKG #1 EKG attestation: Yes I reviewed and interpreted this EKG. EKG results narrative: EKG done at 11:17 shows sinus rhythm rate of 79 bpm. Normal axis. Intervals within normal limits, except QTc corrected is 520. No signs of ST elevation, ST depression or Q waves present. Unchanged EKG from 08/10/18
[2018-09-03 11:51] LABS: Troponin I < 0.03 ng/mL (< 0.04)
[2018-09-03 11:53] LABS: Alanine Aminotransferase 19 Units/L (7-52); Albumin 3.2 g/dL (3.5-5.7); Albumin/Globulin Ratio 0.8 (1.1-2.2); Alkaline Phosphatase 94 Units/L (34-104); Aspartate Amino Transferase 16 Units/L (13-39); BUN/Creatinine Ratio 16 (6-26); Bilirubin,Direct 0.1 mg/dL (0.0-0.2); Bilirubin,Indirect 0.4 mg/dL (0.0-1.2); Bilirubin,Total 0.5 mg/dL (0.3-1.0); Blood Urea Nitrogen 12 mg/dL (8-23); Calcium 9.3 mg/dL (8.6-10.3); Carbon Dioxide 25 mEq/L (23-29); Chloride 92 mEq/L (98-107); Ethanol < 10 mg/dL (Less than 10); Globulin 4.2 g/dL (2.4-3.5); Glucose 227 mg/dL (70-105); Osmolality,Calculated 269 (280-300); Potassium 3.9 mEq/L (3.5-5.1); Sodium 126 mEq/L (136-145); Total Protein 7.4 g/dL (6.4-8.9); eGFR For Non-African Americans > 60 (> 60)
[2018-09-03 12:05] LABS: Thyroid Stimulating Hormone 0.753 mcIU/mL (0.340-5.600)
[2018-09-03 12:33] LABS: Bilirubin,Urine Small (Negative); Blood,Urine Moderate (Negative); Clarity,Urine Turbid (Clear); Color,Urine Dark Yellow (Yellow); Glucose,Urine (UA) 250 mg/dL (Normal); Ketones,Urine 15 mg/dL (Negative); Leukocyte Esterase,Urine Trace (Negative); Nitrite,Urine Negative (Negative); Protein,Urine 30 mg/dL (Neg-Trace); Specific Gravity,Urine 1.018 (1.010-1.025); Urobilinogen,Urine Normal (Normal)
[2018-09-03 12:34] LABS: Bacteria,Urine Moderate per hpf (None-Few); Hyaline Casts,Urine Moderate per lpf (None-Few); RBC,Urine 0-3 per hpf (0-3)
[2018-09-03 12:50] LABS: Granular Casts,Urine Few per lpf (None Seen); Mucus,Urine Many (Few)
[2018-09-03 12:52] LABS: Squamous Epithelial Cell,Urine Few per lpf (None-Few)
[2018-09-03 12:53] LABS: VBG HCO3 24 mEq/L (21-27); VBG PCO2 32 mmHg (41-51); VBG PH 7.49 pH Units (7.32-7.42); VBG PO2 199 mmHg (25-50)
--- NOTE | 2018-09-03 12:56 | Emergency Department Note ---
Disposition Clinical Impression: Hyponatremia, Dehydration UTI (urinary tract infection) Qualifiers: Urinary tract infection type: site unspecified Hematuria presence: with hematuria Qualified Code(s): N39.0 - Urinary tract infection, site not specified; R31.9 - Hematuria, unspecified Disposition: Admitted As Inpatient Condition: Good Referrals: Chava Johnston MD [Primary Care Provider] - Forms: ED Satisfaction Letter General Adult HPI - General Chief complaint: ED Neuro Symptoms/Deficit Stated complaint: AMS/Neuro Time Seen by Provider: 09/03/18 10:53 Source: patient, family Mode of arrival: ambulatory Limitations: physical limitation - History of Present Illness Pain Scale: 9 - Related Data Home Medications Medication Instructions Recorded Confirmed Aspirin [Adult Aspirin] 81 mg PO DAILY 08/01/18 09/03/18 Atorvastatin [Lipitor] 40 mg PO HS 08/01/18 09/03/18 Buspirone HCl [Buspar] 10 mg PO DAILY 08/01/18 09/03/18 Clopidogrel [Plavix] 75 mg PO DAILY 08/01/18 09/03/18 Cyclobenzaprine [Flexeril] 10 mg PO TID PRN 08/01/18 09/03/18 Magnesium 125 mg PO DAILY 08/01/18 09/03/18 Sertraline [Zoloft] 200 mg PO DAILY 08/01/18 09/03/18 metFORMIN [Glucophage] 500 mg PO BID 08/01/18 09/03/18 traZODone [TraZODone] 50 mg PO HS PRN 08/01/18 09/03/18 Sildenafil Citrate [Viagra] 50 - 100 mg PO DAILY PRN 08/02/18 09/03/18 Albuterol Sulfate [Proair Hfa] 1 - 2 puff IH Q6HR PRN 08/11/18 09/03/18 Ferrous Sulfate 325 mg PO DAILY 09/03/18 09/03/18 Pantoprazole Sodium [Protonix] 40 mg PO DAILY 09/03/18 09/03/18 hydroCHLOROthiazide 12.5 mg PO DAILY 09/03/18 09/03/18 [Hydrochlorothiazide] Previous Rx's Medication Instructions Recorded Carvedilol [Coreg] 6.25 mg PO BIDWM 30 Days #60 tablet 08/13/18 amLODIPine [Norvasc] 10 mg PO DAILY 30 Days #60 tablet 08/13/18 Allergies Allergy/AdvReac Type Severity Reaction Status Date / Time Iodinated Contrast- Oral and Allergy Angioedema Verified 08/10/18 11:32 IV Dye lisinopril Allergy Angioedema Verified 08/10/18 11:32 Penicillins [PCN] Allergy Hives Verified 08/10/18 11:32 shellfish derived AdvReac Intermediate See Verified 08/10/18 11:32 Comments cefuroxime [From Ceftin] AdvReac Diarrhea Verified 08/10/18 11:32 iopamidol AdvReac See Verified 09/03/18 10:49 Comments Past Medical History - Past Medical History Medical history: Reports: arthritis, asthma, CVA, diabetes, hypertension Psychiatric history: Reports: no psych history - Social History Smoking Status: Never smoker Smokeless Tobacco Status: No Alcohol use: Reports: rarely Drug use: Reports: none Physical Exam - General Limitations: physical limitation Course Vital Signs Temperature 98.3 F 09/03/18 10:46 Pulse Rate 82 09/03/18 10:46 Respiratory Rate 16 09/03/18 10:46 Blood Pressure 118/70 09/03/18 10:46 O2 Sat by Pulse Oximetry 97 09/03/18 10:46 Temperature 99.5 F 09/03/18 11:00 Pulse Rate 79 09/03/18 11:00 Respiratory Rate 16 09/03/18 11:00 Blood Pressure 142/82 09/03/18 11:00 O2 Sat by Pulse Oximetry 97 09/03/18 11:00 Oxygen Delivery Oxygen Delivery Room Air Medical Decision Making - Lab Data Result diagrams: 09/03/18 11:09 09/03/18 11:09 Lab Results 09/03/18 09/03/18 09/03/18 Range/Units 11:09 11:09 11:22 WBC 10.6 (4.3-11.1) K/mcL RBC 4.12 L (4.19-5.50) M/mcL Hgb 9.0 L (12.9-16.9) g/dL Hct 29.6 L (37.5-50.1) % MCV 71.8 L (83.0-100.0) fL MCH 21.8 L (28.0-33.3) pg MCHC 30.4 L (31.6-35.5) g/dL RDW 22.7 H (11.5-14.5) % Plt Count 382 (140-400) K/mcL MPV 9.1 L (9.4-12.4) fL Immature Gran % 0.6 (0-4) % Seg Neutrophils % 82.6 % Lymphocytes % 7.2 % Monocytes % 9.0 % Eosinophils % 0.4 % Basophils % 0.2 % Neutrophils # 8.8 (1.6-8.9) K/mcL Lymphocytes # 0.8 (0.6-4.6) K/mcL Monocytes # 1.0 (0.0-1.3) K/mcL Eosinophils # 0.0 (0.0-0.6) K/mcL Basophils # 0.0 (0.0-0.2) K/mcL VBG pH (7.32-7.42) pH Units VBG pCO2 (41-51) mmHg VBG pO2 (25-50) mmHg VBG HCO3 (21-27) mEq/L Sodium 126 L (136-145) mEq/L Potassium 3.9 (3.5-5.1) mEq/L Chloride 92 L (98-107) mEq/L Carbon Dioxide 25 (23-29) mEq/L BUN 12 (8-23) mg/dL Creatinine 0.73 (0.70-1.30) mg/dL Est GFR ( Amer) > 60 (> 60) Est GFR (Non-Af Amer) > 60 (> 60) BUN/Creatinine Ratio 16 (6-26) Glucose 227 H (70-105) mg/dL POC Glucose 216 H (70-99) mg/dL Calculated Osmolality 269 L (280-300) Calcium 9.3 (8.6-10.3) mg/dL Total Bilirubin 0.5 (0.3-1.0) mg/dL Direct Bilirubin 0.1 (0.0-0.2) mg/dL Indirect Bilirubin 0.4 (0.0-1.2) mg/dL AST 16 (13-39) Units/L ALT 19 (7-52) Units/L Alkaline Phosphatase 94 (34-104) Units/L Troponin I < 0.03 (< 0.04) ng/mL Serum Total Protein 7.4 (6.4-8.9) g/dL Albumin 3.2 L (3.5-5.7) g/dL Globulin 4.2 H (2.4-3.5) g/dL Albumin/Globulin Ratio 0.8 L (1.1-2.2) TSH 0.753 (0.340-5.600) mcIU/mL Urine Color (Yellow) Urine Clarity (Clear) Urine pH (5.0-8.0) pH Units Ur Specific [place] (1.010-1.025) Urine Protein (Neg-Trace) mg/dL Urine Glucose (UA) (Normal) mg/dL Urine Ketones (Negative) mg/dL Urine Blood (Negative) Urine Nitrite (Negative) Urine Bilirubin (Negative) Urine Urobilinogen (Normal) mg/dL Ur Leukocyte Esterase (Negative) Urine Microscopic RBC (0-3) per hpf Urine Microscopic WBC (0-3) per hpf Ur Squamous Epith Cells (None-Few) per lpf Urine Bacteria (None-Few) per hpf Hyaline Casts (None-Few) per lpf Granular Casts (None Seen) per lpf Urine Mucus (Few) Ur Culture Indicated? (NO) Ur Drug Screen Interp Ethyl Alcohol < 10 (Less than 10) mg/dL 09/03/18 09/03/18 09/03/18 Range/Units 12:22 12:22 12:50 WBC (4.3-11.1) K/mcL RBC (4.19-5.50) M/mcL Hgb (12.9-16.9) g/dL Hct (37.5-50.1) % MCV (83.0-100.0) fL MCH (28.0-33.3) pg MCHC (31.6-35.5) g/dL RDW (11.5-14.5) % Plt Count (140-400) K/mcL MPV (9.4-12.4) fL Immature Gran % (0-4) % Seg Neutrophils % % Lymphocytes % % Monocytes % % Eosinophils % % Basophils % % Neutrophils # (1.6-8.9) K/mcL Lymphocytes # (0.6-4.6) K/mcL Monocytes # (0.0-1.3) K/mcL Eosinophils # (0.0-0.6) K/mcL Basophils # (0.0-0.2) K/mcL VBG pH 7.49 H (7.32-7.42) pH Units VBG pCO2 32 L (41-51) mmHg VBG pO2 199 H (25-50) mmHg VBG HCO3 24 (21-27) mEq/L Sodium (136-145) mEq/L Potassium (3.5-5.1) mEq/L Chloride (98-107) mEq/L Carbon Dioxide (23-29) mEq/L BUN (8-23) mg/dL Creatinine (0.70-1.30) mg/dL Est GFR ( Amer) (> 60) Est GFR (Non-Af Amer) (> 60) BUN/Creatinine Ratio (6-26) Glucose (70-105) mg/dL POC Glucose (70-99) mg/dL Calculated Osmolality (280-300) Calcium (8.6-10.3) mg/dL Total Bilirubin (0.3-1.0) mg/dL Direct Bilirubin (0.0-0.2) mg/dL Indirect Bilirubin (0.0-1.2) mg/dL AST (13-39) Units/L ALT (7-52) Units/L Alkaline Phosphatase (34-104) Units/L Troponin I (< 0.04) ng/mL Serum Total Protein (6.4-8.9) g/dL Albumin (3.5-5.7) g/dL Globulin (2.4-3.5) g/dL Albumin/Globulin Ratio (1.1-2.2) TSH (0.340-5.600) mcIU/mL Urine Color Dark Yellow (Yellow) Urine Clarity Turbid A (Clear) Urine pH 6.0 (5.0-8.0) pH Units Ur Specific [place] 1.018 (1.010-1.025) Urine Protein 30 H (Neg-Trace) mg/dL Urine Glucose (UA) 250 H (Normal) mg/dL Urine Ketones 15 H (Negative) mg/dL Urine Blood Moderate H (Negative) Urine Nitrite Negative (Negative) Urine Bilirubin Small H (Negative) Urine Urobilinogen Normal (Normal) mg/dL Ur Leukocyte Esterase Trace H (Negative) Urine Microscopic RBC 0-3 (0-3) per hpf Urine Microscopic WBC 5-15 H (0-3) per hpf Ur Squamous Epith Cells Few (None-Few) per lpf Urine Bacteria Moderate H (None-Few) per hpf Hyaline Casts Moderate H (None-Few) per lpf Granular Casts Few H (None Seen) per lpf Urine Mucus Many H (Few) Ur Culture Indicated? YES A (NO) Ur Drug Screen Interp See Below Ethyl Alcohol (Less than 10) mg/dL Attestation Statement - Attestation Attestation: I examined this patient and my medical decision-making was reviewed with the Resident Physician. I agree with the documented findings, disposition and treatment plan as described except to the extent set forth below. 63 year old male presents to the eD with complaints of confusion and weakness and most recently had an admission to [facility] secondary to strokes. He has been fe eeling increaisngly more weak over the past one week.. Patinet appears to be dehydrated on labs with a hyponatermia of 126 and then appears dehydrated on UA. We will admit to medicine.
[2018-09-03 13:17] LABS: Amphetamine Screen,Urine Negative ng/mL (Cutoff=1000); Barbiturate Screen,Urine Negative ng/mL (Cutoff=200); Benzodiazepines Screen,Urine Positive ng/mL (Cutoff=200); Cannabinoid Screen,Urine Positive ng/mL (Cutoff = 50); Cocaine Screen,Urine Negative ng/mL (Cutoff= 300); Opiate Screen,Urine Positive ng/mL (Cutoff=300); Phencyclidine Screen,Urine Negative ng/mL (Cutoff=25)
[2018-09-03] MEDS ORDERED: cefTRIAXone 1,000 MG in Water for inj. (sterile) 20 ML 10 ML IVP ONE (13:49)
[2018-09-03] MEDS ORDERED: Naloxone 0.4 MG/ML INJ IVP PRN (15:25)
[2018-09-03] MEDS ORDERED: Dextrose Gel 15 GM/37.5 ML TUBE PO PRN ×2 (15:27)
[2018-09-03] MEDS ORDERED: D5% in Water 1,000 ML IVC PRN (15:27)
[2018-09-03] MEDS ORDERED: *HR* Dextrose 50 % in Water (Syg) 50 ML SYRINGE IVP PRN (15:27)
--- NOTE | 2018-09-03 15:32 | Internal Med History&Physical ---
Date of Encounter: 09/03/18 Time of Encounter: 15:56 Internal Medicine - H&P: HPI History of present illness: Mr. Velasco is a 63 year old male Past Med Surg Social Fam HX - Past Medical History Medical history: arthritis, asthma, CVA, diabetes, hypertension Psychiatric history: no psych history - Past Surgical History Additional surgical history: neck/spinal fusion, toe implants, knee scope - Social History Smoking Status: Never smoker Smokeless Tobacco Status: No Alcohol use: rarely Drug use: none Internal Medicine - H&P: Meds Aspirin [Adult Aspirin] 81 mg PO DAILY 08/01/18 [History] Atorvastatin [Lipitor] 40 mg PO HS 08/01/18 [History] Buspirone HCl [Buspar] 10 mg PO DAILY 08/01/18 [History] Clopidogrel [Plavix] 75 mg PO DAILY 08/01/18 [History] Cyclobenzaprine [Flexeril] 10 mg PO TID PRN 08/01/18 [History] Magnesium 125 mg PO DAILY 08/01/18 [History] Sertraline [Zoloft] 200 mg PO DAILY 08/01/18 [History] metFORMIN [Glucophage] 500 mg PO BID 08/01/18 [History] traZODone [TraZODone] 50 mg PO HS PRN 08/01/18 [History] Sildenafil Citrate [Viagra] 50 - 100 mg PO DAILY PRN 08/02/18 [History] Albuterol Sulfate [Proair Hfa] 1 - 2 puff IH Q6HR PRN 08/11/18 [History] Carvedilol [Coreg] 6.25 mg PO BIDWM 30 Days #60 tablet 08/13/18 [Rx] amLODIPine [Norvasc] 10 mg PO DAILY 30 Days #60 tablet 08/13/18 [Rx] Ferrous Sulfate 325 mg PO DAILY 09/03/18 [History] Pantoprazole Sodium [Protonix] 40 mg PO DAILY 09/03/18 [History] hydroCHLOROthiazide [Hydrochlorothiazide] 12.5 mg PO DAILY 09/03/18 [History] Allergy/AdvReac Type Severity Reaction Status Date / Time Iodinated Contrast- Oral and Allergy Angioedema Verified 08/10/18 11:32 IV Dye lisinopril Allergy Angioedema Verified 08/10/18 11:32 Penicillins [PCN] Allergy Hives Verified 08/10/18 11:32 shellfish derived AdvReac Intermediate See Verified 08/10/18 11:32 Comments cefuroxime [From Ceftin] AdvReac Diarrhea Verified 08/10/18 11:32 iopamidol AdvReac See Verified 09/03/18 10:49 Comments All Systems PM: A 10-system review of systems was performed and is negative for pertinent findings except as documented above in the HPI. - Constitutional Constitutional: falls, no chills, no fever(s), no night sweats - EENT Eyes: no change in vision, no discharge, no pain, no photophobia Ears: no ear discharge, no ear pain, no tinnitus Nose, mouth and throat: no dysphagia, no nasal discharge, no neck pain, no sore throat - Cardiovascular Cardiovascular ROS IM: no chest pain, no diaphoresis, no dyspnea, no lightheadedness, no palpitations, no syncope - Respiratory Respiratory: no cough, no dyspnea, no wheezing, no excessive phlegm production - Gastrointestinal Gastrointestinal: no abdominal pain, no diarrhea, no hematemesis, no hematochezia, no melena, no nausea, no vomiting - Musculoskeletal Musculoskeletal ROS IM: no numbness, no tingling - Integumentary Integumentary IM: no rash, no unusual bruising - Neurological Neurological ROS: abnormal speech, no confusion, no convulsions, no focal weakness, no numbness, no tingling, no tremor(s) - Hematologic/Lymphatic Hematologic/Lymphatic: no easy bruising - Constitutional Vitals: Temp Pulse Resp BP Pulse Ox 99.5 F 84 24 174/83 97 09/03/18 11:00 09/03/18 14:39 09/03/18 14:39 09/03/18 14:39 09/03/18 14:39 General appearance: Present: A&O X 3, pleasant, no acute distress Exam: . - Head Head exam: Present: atraumatic, normocephalic - Eye Eye exam: Present: PERRL, conjuntiva pink, sclera anicteric Pupils: Present: PERRL - Neck Neck exam general surgery: Present: supple, trachea midline. Absent: lymphadenopathy - Respiratory Respiratory exam: Present: CTAB. Absent: accessory muscle use, rales, rhonchi, wheezes - Cardiovascular Cardiovascular exam: Present: RRR, +S1, +S2. Absent: diastolic murmur, gallop, rubs, systolic murmur - GI/Abdominal GI/Abdominal exam: Present: normal bowel sounds, soft, no peritoneal signs. Absent: distended, tenderness - Extremities Exam Extremities exam: Present: warm, radial pulses palpable and symmetrical. Absent: calf tenderness, cyanotic, pedal edema - Neurological Exam Neurological exam: Present: CN II-XII intact, oriented X3, no focal deficits. Absent: pronater drift, facial droop, speech deficit - Skin Skin exam: Present: dry, intact Internal Med - H&P Results - Labs CBC & Chem 7: 09/03/18 11:09 09/03/18 11:09 Labs: Short CBC 09/03/18 Range/Units 11:09 WBC 10.6 (4.3-11.1) K/mcL Hgb 9.0 L (12.9-16.9) g/dL Hct 29.6 L (37.5-50.1) % Plt Count 382 (140-400) K/mcL Neutrophils # 8.8 (1.6-8.9) K/mcL BMP 09/03/18 11:09 Sodium 126 L Potassium 3.9 Chloride 92 L Carbon Dioxide 25 BUN 12 Creatinine 0.73 Glucose 227 H Calcium 9.3 Cardiac Enzymes 09/03/18 Range/Units 11:09 Troponin I < 0.03 (< 0.04) ng/mL Liver Function 09/03/18 Range/Units 11:09 Total Bilirubin 0.5 (0.3-1.0) mg/dL Direct Bilirubin 0.1 (0.0-0.2) mg/dL AST 16 (13-39) Units/L ALT 19 (7-52) Units/L Alkaline Phosphatase 94 (34-104) Units/L Albumin 3.2 L (3.5-5.7) g/dL Urine 09/03/18 Range/Units 12:22 Urine Color Dark Yellow (Yellow) Urine Clarity Turbid A (Clear) Urine pH 6.0 (5.0-8.0) pH Units Ur Specific [place] 1.018 (1.010-1.025) Urine Protein 30 H (Neg-Trace) mg/dL Urine Glucose (UA) 250 H (Normal) mg/dL - ABG Interpretation ABG results: 09/03/18 12:50 VBG pH 7.49 H VBG pCO2 32 L VBG pO2 199 H VBG HCO3 24 - Impressions ITS Impressions Chest X-Ray 09/03/18 10:53 IMPRESSION: No acute process identified. D/ / Tobias Valdez MD / Tobias Valdez MD Interpreting Provider: Tobias Valdez MD Head CT 09/03/18 10:54 IMPRESSION: 1. No acute intracranial abnormality. D/ / Jos Boone MD / Jos Boone MD Interpreting Provider: Jos Boone MD - Assessment and plan (1) Acute metabolic encephalopathy Current Visit: Yes Status: Acute Assessment and plan: presented with intermittent confusion, slurred speech and increased falls per patient's . Suspect multifactorial with UTI and medication related. Head CT non-acute. UDS positive for opiates, benzos and marijuana. [place] reviewed on 09/03/18 and patient does have Rx for hydrocodone. Continue treating underlying causes for now. Supportive care. Neurology consult (2) History of CVA (cerebrovascular accident) Current Visit: No Status: Acute Assessment and plan: per hx with no residual deficits. reports confusion, slurred speech and frequent falls over the last several months. Per chart review patient has had significant workup including negative neuro imaging. Follows with neurology at [facility] but has not been seen in a while. Recently minute for similar symptoms head CT and brain MRI at that time unremarkable. Now with recurrent symptoms as just noted. Head CT nonacute. Appears neurologically intact. Hold on further diagnostic imaging at this time. Consult neurology. Continue home ASA, Plavix (3) UTI (urinary tract infection) Current Visit: Yes Status: Acute Assessment and plan: UA indicative of UTI. Possibly contributing to metabolic encephalopathy. Continue IV ceftriaxone. Follow urine culture and narrow ATB accordingly Qualifiers: Urinary tract infection type: site unspecified Hematuria presence: with hematuria Qualified Code(s): N39.0 - Urinary tract infection, site not specified; R31.9 - Hematuria, unspecified (4) Hyponatremia Current Visit: Yes Status: Acute Assessment and plan: Na 126; appears to be acute on chronic. HCTZ on home medication list but says he is not taking. Possibly secondary to Zoloft. Neurologically intact. Monitor repeat CMP. (5) Weight loss Current Visit: Yes Status: Acute Assessment and plan: reports 40lb weight loss since beginning of 07/2018. Had recent abdominal imaging which is not concerning for malignancy and. Recent C scope unremarkable. No need to repeat imaging or procedures at this time. Nutrition consult. (6) Anemia Current Visit: Yes Status: Acute Assessment and plan: per hx. Hgb stable. No active bleeding. Recent EGD and C scope without evidence of bleeding. Continue home iron supplement. Monitor H&H. Qualifiers: Anemia type: iron deficiency Qualified Code(s): D50.8 - Other iron deficiency anemias (7) Cervical spondylosis Current Visit: No Status: Acute Assessment and plan: per hx. S/p C5-7 anterior cervical spine fusion. Appears to have chronic neck pain. Was evaluated by Dr. Iyer on 08/10/18 who noted foraminal stenosis cervical spine and cervical spondylosis. PT and outpatient neck program was recommended at that time. Patient did not require acute surgical intervention. Supportive care. 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 Likely secondary to dietary noncompliance. Holding home metformin (metformin could be increased 2000 mg twice a day discharge). SSI. Monitor blood sugar and titrate PRN. 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
[2018-09-03] MEDS ORDERED: Saline Nasal Spray 44 ML BOTTLE NS PRN (16:01)
[2018-09-03] MEDS: *HR* OxyCODONE Immed Rel 5 MG TABLET PO PRN (16:49)
[2018-09-03] MEDS: Insulin LISPRO 300 UNITS/3 ML VIAL SQ SCH (17:04)
[2018-09-03] MEDS ORDERED: Ketorolac 30 MG/ML VIAL IM ONE (18:22)
[2018-09-03] MEDS ORDERED: Ketorolac 30 MG/ML VIAL IVP ONE (18:42)
[2018-09-03] MEDS ORDERED: Insulin LISPRO 300 UNITS/3 ML VIAL SQ SCH (21:00)
[2018-09-04] MEDS: *HR* OxyCODONE Immed Rel 5 MG TABLET PO PRN (00:48)
[2018-09-04] MEDS ORDERED: *HR* Metoprolol 5 MG/5 ML VIAL IVP ONE (04:08)
[2018-09-04] MEDS: Acetaminophen 325 MG TABLET PO PRN ×2 (04:23→13:39)
[2018-09-04 05:01] LABS: Hematocrit 28.8 % (37.5-50.1); Hemoglobin 8.6 g/dL (12.9-16.9); Mean Corpuscular HGB Conc 29.9 g/dL (31.6-35.5); Mean Corpuscular Hemoglobin 21.5 pg (28.0-33.3); Mean Platelet Volume 9.4 fL (9.4-12.4); Platelet Count 373 K/mcL (140-400); Red Cell Distribution Width 22.9 % (11.5-14.5)
[2018-09-04 05:23] LABS: Alanine Aminotransferase 17 Units/L (7-52); Albumin/Globulin Ratio 0.7 (1.1-2.2); Alkaline Phosphatase 95 Units/L (34-104); Aspartate Amino Transferase 15 Units/L (13-39); BUN/Creatinine Ratio 24 (6-26); Bilirubin,Total 0.5 mg/dL (0.3-1.0); Blood Urea Nitrogen 16 mg/dL (8-23); Calcium 9.2 mg/dL (8.6-10.3); Carbon Dioxide 25 mEq/L (23-29); Chloride 92 mEq/L (98-107); Globulin 4.3 g/dL (2.4-3.5); Glucose 160 mg/dL (70-105); Osmolality,Calculated 269 (280-300); Potassium 3.8 mEq/L (3.5-5.1); Sodium 127 mEq/L (136-145); Total Protein 7.3 g/dL (6.4-8.9); eGFR For Non-African Americans > 60 (> 60)
[2018-09-04] MEDS ORDERED: *HR* Enoxaparin 40 MG/0.4 ML SYRINGE SQ SCH (06:00)
--- NOTE | 2018-09-04 08:30 | Neurology - Consult Note ---
Addendum entered and electronically signed by Josee Sheldon MD 09/04/18 16:13: Patient is seen and examined in the presence of Dr. Panchito Daigle and case discussed and imaging studies reviewed together and then the patient is seen together. I agree with his history taking, physical examination and assessment and plan, outlined below. with additional information with regarding to his neurological examination that the patient does have rather significant bilateral ankle clonus, which are sustained. DTRs are brisk but i did not appreciate any Hernandes signs. Currently the patient denies any headaches and no significant weakness. patient currently myelopathic but he has no paraplegia and no significant focal weakness and no respiratory difficulty. There is no evidence of acute spinal cord compression. Disc bulge at C4-C5 noted, which is likely chronic in nature. Patient is being treated with antibiotic and agree the patient is to be transferred to tertiary care center where neurosurgery is available. MRI of brain showed no evidence of stroke or other intracranial abnormality. No evidence of encephalitis. Patient is on aspirin and plavix due to previous history of cerebellar infarct. Totally 70 minutes of time were spent on the patient, more than 50% were used toward direct face to face patient care and the rest for coordination of medical care. All questions answered Original Note: Date of Encounter: 09/04/18 Time of Encounter: 09:14 Assessment and Plan (1) Altered mental status Current Visit: Yes Status: Acute - Patient presented with intermittent confusion, slurred speech, and dizziness - Etiology is unknown at this time; differential includes intoxication, infectious etiology, seizure disorder, CVA - Per chart review, patient does have a history of multiple CVAs in the past - CT of the head showed no acute process - Urinalysis was suggestive of UTI with urine bacteria, leukocyte esterase - Urine drug screen was positive for opiates, benzodiazepines, and marijuana - Patient does have a prescription for hydrocodone - Review of previous MRIs demonstrates prior cerebellar stroke Plan: - Continue supportive care; stroke precautions - Currently on Rocephin 1 g daily; awaiting urine cultures - Continue ASA, Plavix, statin - Will order EEG, MRI of the brain, carotid Doppler Qualifiers: Qualified Code(s): R41.82 - Altered mental status, unspecified History of Present Illness HPI: Garcia Velasco is a 63-year-old male with a PMH of asthma, arthritis, CVA, DM, HTN who presented to [facility] ED on 09/03/18 with a chief complaint of generalized weakness, difficulty speaking, and weight loss since June. Patient was completed by , who stated that patients symptoms have been progressively worsening, and that he has been having difficulty with ambulation. Patient was recently seen by [facility]; reports that they were unable to find etiology for his symptoms. Upon arrival to the emergency department, patients vital signs were as follows: Temperature was 98.3, pulse is 82, respiratory rate was 16, blood pressure was 118/70, O2 saturation was 97. CXR showed no acute process. CT of the head showed no acute intracranial abnormality. Laboratory analysis was significant for a low hemoglobin of 9, hyponatremia at 126, and urinalysis demonstrated likely UTI. Urine drug screen was positive for opiates, cierra odiazepines, and marijuana. Patient was seen and examined at bedside; he states that he is feeling better than when he did on arrival. He states that his initial symptoms of completely resolved. He notes that he has had several episodes like this over the past several months. He describes these episodes as intermittent periods of dizziness, weakness, and gait difficulties lasting approximately 15-20 minutes. He states that he feels confused during these episodes and feels like the room is spinning. He notes that his symptoms had completely resolved by the time he was admitted to the hospital. He has not had any issues like this since his admission. He states that he was diagnosed with vestibular migraines at [facility] back in June. He also reports that in the last 2 weeks, he has experienced auditory hallucinations. He describes somebody talking to him in the room, and that he realizes shortly after that no one is there. He has no prior episodes like this in the past. Denies having any visual hallucinations. He currently denies having any weakness, numbness, tingling, fatigue, headache, fevers, chills, tremors, dizziness, vertigo, or visual disturbances. He has no further complaints at this time. Past Med Surg Social Fam HX - Past Medical History Medical history: arthritis, asthma, CVA, diabetes, hypertension Psychiatric history: no psych history - Past Surgical History Additional surgical history: neck/spinal fusion, toe implants, knee scope - Social History Smoking Status: Never smoker Smokeless Tobacco Status: No Alcohol use: rarely Drug use: none - Family History Daughter Living Status: Still Living Hx Family Cardiac Disorders: Yes (heart disease) Hx Family Endocrine Disorder: Yes (Dm) Hx Family Neuromuscular Disorders: Yes (CVA) Medications and Allergies Aspirin [Adult Aspirin] 81 mg PO DAILY 08/01/18 [History] Atorvastatin [Lipitor] 40 mg PO HS 08/01/18 [History] Buspirone HCl [Buspar] 10 mg PO DAILY 08/01/18 [History] Clopidogrel [Plavix] 75 mg PO DAILY 08/01/18 [History] Cyclobenzaprine [Flexeril] 10 mg PO TID PRN 08/01/18 [History] Magnesium 125 mg PO DAILY 08/01/18 [History] Sertraline [Zoloft] 200 mg PO DAILY 08/01/18 [History] metFORMIN [Glucophage] 500 mg PO BID 08/01/18 [History] traZODone [TraZODone] 50 mg PO HS PRN 08/01/18 [History] Sildenafil Citrate [Viagra] 50 - 100 mg PO DAILY PRN 08/02/18 [History] Albuterol Sulfate [Proair Hfa] 1 - 2 puff IH Q6HR PRN 08/11/18 [History] Carvedilol [Coreg] 6.25 mg PO BIDWM 30 Days #60 tablet 08/13/18 [Rx] amLODIPine [Norvasc] 10 mg PO DAILY 30 Days #60 tablet 08/13/18 [Rx] Ferrous Sulfate 325 mg PO DAILY 09/03/18 [History] Pantoprazole Sodium [Protonix] 40 mg PO DAILY 09/03/18 [History] hydroCHLOROthiazide [Hydrochlorothiazide] 12.5 mg PO DAILY 09/03/18 [History] Allergy/AdvReac Type Severity Reaction Status Date / Time Iodinated Contrast- Oral and Allergy Angioedema Verified 08/10/18 11:32 IV Dye lisinopril Allergy Angioedema Verified 08/10/18 11:32 Penicillins [PCN] Allergy Hives Verified 08/10/18 11:32 shellfish derived AdvReac Intermediate See Verified 08/10/18 11:32 Comments cefuroxime [From Ceftin] AdvReac Diarrhea Verified 08/10/18 11:32 iopamidol AdvReac See Verified 09/03/18 10:49 Comments All Systems: The remainder of the systems were reviewed and are negative - Constitutional Constitutional ROS IM: as per HPI, no lethargy, no weakness - Musculoskeletal Musculoskeletal ROS IM: as per HPI, no abnormal gait, no muscle weakness, no neck pain, no numbness, no tingling - Neurological Neurological ROS: as per HPI, no disequilibrium, no dizziness, no focal weakness, no headache(s), no loss of vision, no numbness, no paresthesias, no sensory deficit, no tingling, no vertigo, no weakness, no other visual disturbances - Psychiatric Psychiatric general PM: as per HPI, auditory hallucinations (Reports intermittent auditory hallucinations that have been going on for the last 2 weeks; last episode was earlier this morning) Physical Examination - Vital Signs Vital Signs: Initial Vital Signs Temp Pulse Resp BP Pulse Ox 98.3 F 82 16 118/70 97 09/03/18 10:46 09/03/18 10:46 09/03/18 10:46 09/03/18 10:46 09/03/18 10:46 - Constitutional General appearance: comfortable - Neurologic Sensorimotor examination: intact Motor examination - right side: 5/5: deltoids, biceps, triceps, wrist flexion, wrist extension, wind turbine erector, toe extension (EHL), plantarflexion Motor examination - left side: 5/5: deltoids, biceps, triceps, wrist flexion, wrist extension, wind turbine erector, toe extension (EHL), plantarflexion Detailed sensory examination: intact Reflexes: Brachioradialis: 2+, Patella: 2+ Mental Status Examination: awake, alert, oriented to person, oriented to place, oriented to time, follows commands appropriately, answers questions appropriately, no aphasia Cranial nerve examination: PERRL, EOMI, visual rosas intact Results - Laboratory Findings CBC and BMP: 09/04/18 04:19 09/04/18 04:19 Abnormal lab findings: Abnormal lab results RBC 4.00 M/mcL (4.19-5.50) L 09/04/18 04:19 Hgb 8.6 g/dL (12.9-16.9) L 09/04/18 04:19 Hct 28.8 % (37.5-50.1) L 09/04/18 04:19 MCV 72.0 fL (83.0-100.0) L 09/04/18 04:19 MCH 21.5 pg (28.0-33.3) L 09/04/18 04:19 MCHC 29.9 g/dL (31.6-35.5) L 09/04/18 04:19 RDW 22.9 % (11.5-14.5) H 09/04/18 04:19 VBG pH 7.49 pH Units (7.32-7.42) H 09/03/18 12:50 VBG pCO2 32 mmHg (41-51) L 09/03/18 12:50 VBG pO2 199 mmHg (25-50) H 09/03/18 12:50 Sodium 127 mEq/L (136-145) L 09/04/18 04:19 Chloride 92 mEq/L (98-107) L 09/04/18 04:19 Creatinine 0.68 mg/dL (0.70-1.30) L 09/04/18 04:19 Glucose 160 mg/dL (70-105) H 09/04/18 04:19 POC Glucose 145 mg/dL (70-99) H 09/03/18 16:22 Calculated Osmolality 269 (280-300) L 09/04/18 04:19 Albumin 3.0 g/dL (3.5-5.7) L 09/04/18 04:19 Globulin 4.3 g/dL (2.4-3.5) H 09/04/18 04:19 Albumin/Globulin Ratio 0.7 (1.1-2.2) L 09/04/18 04:19 Beta-Hydroxybutyric Acd 0.55 mmol/L (0.02-0.27) H 09/03/18 12:31 Urine Clarity Turbid (Clear) A 09/03/18 12:22 Urine Protein 30 mg/dL (Neg-Trace) H 09/03/18 12:22 Urine Glucose (UA) 250 mg/dL (Normal) H 09/03/18 12:22 Urine Ketones 15 mg/dL (Negative) H 09/03/18 12:22 Urine Blood Moderate (Negative) H 09/03/18 12:22 Urine Bilirubin Small (Negative) H 09/03/18 12:22 Ur Leukocyte Esterase Trace (Negative) H 09/03/18 12:22 Urine Microscopic WBC 5-15 per hpf (0-3) H 09/03/18 12:22 Urine Bacteria Moderate per hpf (None-Few) H 09/03/18 12:22 Hyaline Casts Moderate per lpf (None-Few) H 09/03/18 12:22 Granular Casts Few per lpf (None Seen) H 09/03/18 12:22 Urine Mucus Many (Few) H 09/03/18 12:22 Ur Culture Indicated? YES (NO) A 09/03/18 12:22 Urine Opiates Screen Positive ng/mL (Zspgoy=763) H 09/03/18 12:22 U Benzodiazepines Scrn Positive ng/mL (Skgodr=746) H 09/03/18 12:22 U Marijuana (THC) Screen Positive ng/mL (Cutoff = 50) H 09/03/18 12:22 Consult Discharge Plan - Plan Referrals: Chava Johnston MD [Primary Care Provider] -
[2018-09-04] MEDS: Insulin LISPRO 300 UNITS/3 ML VIAL SQ SCH ×2 (08:47→15:14)
[2018-09-04] MEDS ORDERED: amLODIPine 5 MG TABLET PO SCH (09:00)
[2018-09-04] MEDS ORDERED: Aspirin Enteric Coated 81 MG Tablet PO SCH (09:00)
[2018-09-04] MEDS ORDERED: cefTRIAXone 1,000 MG in 0.9 % Sodium Chloride Mini Bag 100 ML IVPB SCH (10:00)
--- NOTE | 2018-09-04 12:49 | EEG/EMG/Oth Biometrics Report ---
EEG Procedure Report Date of procedure: 09/04/18 EEG Procedure: Routine EEG Procedure Note: Report: This EEG was acquired with standard international 10-20 electrode placement system with EKG recording. The background activity during this EEG was characterized by presence of alpha, theta and delta activity with best frequency up to 8 Hz. The background activity was reactive to eye openings and movements. Sleep stages were not identified during this tracing. There are no electrographic seizures identified during this tracing. There are no epileptiform discharged noted during this tracing. No focal slowing identified. Photic stimulation produced no abnormalities. HV not performed during this study. EKG tracing showed no significant cardiac dysarrhythmia. Impression: This is an abnormal EEG due to presence of mild diffuse background slowing. Clinical Correlation: This EEG is consistent with mild diffuse cerebral dysfunction that can be seen in patients with mild encephalopathy, metabolic/toxic, inflammatory, electrolyte derangement or anoxic/ischemic. Clinical correlation suggested.
[2018-09-04] MEDS ORDERED: Dexamethasone 4 MG/ML VIAL IVP ONE (14:39)
--- NOTE | 2018-09-04 15:01 | Discharge Summary ---
- NOTES TO OUTPATIENT PROVIDER Notes to Outpatient Provider: Patient will be transferred to [place] for neurosurgical care. This is regarding his new findings of epidural abscess in C2 to C3 level. Orders not resulted at time of discharge: Pending orders 09/03/18 12:22 Culture,Urine [RM] Stat 09/04/18 09:12 EV carotid duplex imaging BI Routine Date of Encounter: 09/04/18 Time of Encounter: 14:55 - Discharge Diagnosis (1) Epidural abscess Priority: Primary Status: Acute (2) History of CVA (cerebrovascular accident) Priority: Secondary Status: Acute Assessment and Plan: per hx with no residual deficits. reports confusion, slurred speech and frequent falls over the last several months. Per chart review patient has had significant workup including negative neuro imaging. Follows with neurology at [facility] but has not been seen in a while. Recently minute for similar symptoms head CT and brain MRI at that time unremarkable. Now with recurrent symptoms as just noted. Head CT nonacute. Appears neurologically intact. Hold on further diagnostic imaging at this time. Consult neurology. Continue home ASA, Plavix (3) Diabetes mellitus Priority: Secondary Status: Chronic Qualifiers: Diabetes mellitus type: type 2 Diabetes mellitus furniture cleaner insulin use: without furniture cleaner use Diabetes mellitus complication status: with unspecified complications Qualified Code(s): E11.8 - Type 2 diabetes mellitus with unspecified complications (4) Anemia Priority: Secondary Status: Acute Qualifiers: Anemia type: iron deficiency Qualified Code(s): D50.8 - Other iron deficiency anemias (5) Cervical spondylosis Priority: Secondary Status: Acute Qualifiers: Spinal osteoarthritis complication: other spinal osteoarthritis Qualified Code(s): M47.892 - Other spondylosis, cervical region (6) Hyponatremia Priority: Secondary Status: Acute (7) UTI (urinary tract infection) Priority: Secondary Status: Acute Qualifiers: Urinary tract infection type: site unspecified Hematuria presence: with hematuria Qualified Code(s): N39.0 - Urinary tract infection, site not specified; R31.9 - Hematuria, unspecified (8) DVT prophylaxis Priority: Secondary Status: Acute (9) Acute metabolic encephalopathy Priority: Primary Status: Acute (10) Weight loss Priority: Secondary Status: Acute Hospital course: Mr. Velasco is a 63 year old male who was admitted with acute metabolic enc ephalopathy and found to have urinary tract infection. He was also complaining of diffuse weakness and a neurology consult was placed. An MRI of the cervical spine showed a C2-C3 epidural abscess/phlegmon with diffuse soft tissue thickening in between the intraspinous processes C2-C4 5. These findings were discussed with neurology at which point we decided to transfer the patient to a neurosurgical unit. A call was placed to [place]. We have also increased the antibiotic coverage to cefepime and vancomycin. He will get first visit of both of these before he leaves. A Decadron dose was also ordered. Urine culture is positive for gram-positive cocci which explains a hematogenous source of spread. Nursing is aware of the pending transfer. I also explained the protocol and transfer to the family at the bedside in detail. All questions were answered. - Time Spent with Patient Total time spent providing and/or coordinating discharge services: - Discharge Medications Home Medications: Aspirin [Adult Aspirin] 81 mg PO DAILY 08/01/18 [History] Atorvastatin [Lipitor] 40 mg PO HS 08/01/18 [History] Buspirone HCl [Buspar] 10 mg PO DAILY 08/01/18 [History] Clopidogrel [Plavix] 75 mg PO DAILY 08/01/18 [History] Sertraline [Zoloft] 200 mg PO DAILY 08/01/18 [History] metFORMIN [Glucophage] 500 mg PO BID 08/01/18 [History] Albuterol Sulfate [Proair Hfa] 1 - 2 puff IH Q6HR PRN 08/11/18 [History] Carvedilol [Coreg] 6.25 mg PO BIDWM 30 Days #60 tablet 08/13/18 [Rx] amLODIPine [Norvasc] 10 mg PO DAILY 30 Days #60 tablet 08/13/18 [Rx] Ferrous Sulfate 325 mg PO DAILY 09/03/18 [History] Pantoprazole Sodium [Protonix] 40 mg PO DAILY 09/03/18 [History] Allergies/Adverse Reactions: Allergy/AdvReac Type Severity Reaction Status Date / Time Iodinated Contrast- Oral and Allergy Angioedema Verified 08/10/18 11:32 IV Dye lisinopril Allergy Angioedema Verified 08/10/18 11:32 Penicillins [PCN] Allergy Hives Verified 08/10/18 11:32 shellfish derived AdvReac Intermediate See Verified 08/10/18 11:32 Comments cefuroxime [From Ceftin] AdvReac Diarrhea Verified 08/10/18 11:32 iopamidol AdvReac See Verified 09/03/18 10:49 Comments Date of admission: 09/03/18 14:40 Primary care physician: Chava Johnston MD Consults: 09/03/18 15:27 Consult to Neurology [CONS] Routine Consulting Provider: Neurology [facility] Reason for Consult: confusion, slurred speech, hx CVAs Call Completed: Yes 09/03/18 15:33 Consult to Physical Therapy [CONS] Routine Comment: Evaluate, develop and implement POC Reason for Consult: Generalized weakness, deconditioning and frequent falls Does patient have active BEDREST order?: No Is patient medically & hemodynamically stable?: Yes OT [Consult to Occupational Therapy] [CONS] Routine Comment: Evaluate, develop and implement POC Reason for Consult: Generalized weakness, deconditioning and frequent falls Does patient have active BEDREST order?: No Is patient medically & hemodynamically stable?: Yes 09/03/18 15:46 Consult to Nutrition [CONS] Routine Comment: Consulting Provider: NUTRITION Reason for Dietary Consult: MST Score Consult to Press Secretary [CONS] Routine Reason for SW Consult: frequent hospital visits 09/04/18 10:46 Consult to Interpret Exam [CONS] Routine Consulting Provider: Josee Sheldon Consult to Interpret Exam: Interpret Sleep Study - Constitutional Vitals: Temp Pulse Resp BP Pulse Ox 97.9 F 79 17 176/86 95 09/04/18 07:55 09/04/18 07:55 09/04/18 07:55 09/04/18 07:55 09/04/18 07:55 General appearance: Present: A&O X 3, pleasant, no acute distress Exam: GENERAL: Alert, moderate distress, cooperative EYES: PERRLA, EOMI EARS: External ears normal, canals clear OROPHARYNX: Lips, mucosa, and tongue normal. NECK: No jugulovenous distention, No carotid bruits, Carotid pulse normal contour, Supple LUNGS: Lungs clear to auscultation, Good diaphragmatic excursion CARDIAC: Normal S1 and S2; no rubs, murmurs, or gallops ABDOMEN: Abdomen soft, non-tender, BS normal, No masses or organomegaly NEURO: Gait not tested, diffuse weakness noted. Significant tenderness over the cervical spine spinous processes especially C3-C5 level. PULSES: 2+ radial, 2+ carotid Rest of the exam is non contributory - Patient Status Disposition: Hospice - Medical Facility Condition: Fair Functional capacity at discharge: uses cane/walker - Discharge Instructions Follow Up With: Chava Johnston MD [Primary Care Provider] - - Diet and Activity Activity: increase activity as tolerated Diet: advance to your usual diet
--- NOTE | 2018-09-04 15:10 | Electrocardiograph Report ---
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
[2018-09-04] MEDS ORDERED: Aminoglycoside Consult 1 EACH MC ONE (16:47)
[2018-09-04] MEDS ORDERED: Cefepime HCl 2,000 MG in Water for inj. (sterile) 20 ML 20 ML IVP SCH (18:00)
[2018-09-04 21:01] VITALS: BP 127/77
== END 2018-09-04 16:48 | disposition hospice, inpatient (51) ==
LOC: 3ANU 10:45 → EMEROOARM 10:45 → SUATTDRO 14:40 → 3ANU 15:13
PROVIDERS: ADMIT Internal Medicine; ATTEND Internal Medicine